=== PATIENT | female | born 1970 | race Caucasian/White ===

== ENCOUNTER 2024-06-01 08:44 | Inpatient (IN) ==
--- NOTE | 2024-06-01 09:15 | Emergency Department Note ---
History of Present Illness General Chief complaint: TIA Symptoms Stated complaint: LEFT ARM, LEG WEAKNESS, DIFFICULTY WALKING Time Seen by Provider: 06/01/24 09:04 Source: patient, RN notes reviewed and old records reviewed (Old medical records were attempted to be reviewed but there are no old records at this hospital.) Mode of arrival: ambulatory Limitations: no limitations History of Present Illness Maximum Pain Intensity: 5 This patient is a 53-year-old female who has had flulike symptoms for the last couple days but then last night around 6:00 noticed that she was weak in her left arm while folding laundry since then has been persistent she also has some numbness on the left side and facial droop. She fell today because she had a hard time walking no injury. No headache no fever or chills. No history of stroke she is on no blood thinners she has not been to a doctor in a long time. She tells me she has a severe allergy to IV contrast and cannot have it. Home Medications Medication Instructions Recorded Confirmed Type Apple Cider Vinegar Gummy 1 tab PO DAILY 06/01/24 06/01/24 History ibuprofen 200 mg tablet (Advil) 400 mg PO Q6H PRN Pain 06/01/24 06/01/24 History Allergies Allergy/AdvReac Type Severity Reaction Status Date / Time bee venom protein (honey bee) Allergy Intermediate Unknown Verified 06/01/24 11:31 iodine Allergy Mild Unknown Verified 06/01/24 11:31 Penicillins Allergy Mild Unknown Verified 06/01/24 11:31 CONTRASTMEDIA Allergy Mild Unknown Uncoded 06/01/24 11:31 Past Med/Surg History Problem List (Updated 06/01/24 @ 13:09 by Judson Ann PA-C) Elevated troponin Stroke-like symptoms Hypomagnesemia (Acute) Hypertension (Acute) Left sided numbness (Acute) Left-sided muscle weakness (Acute) Cerebrovascular accident (Acute) Social History Smoking Status: Never smoker Feels Safe at Home: Yes Immunizations: Past medical historydenies history of stroke or diabetes. She has not seen a doctor in many years Review of Systems A total of 10 systems reviewed and were otherwise negative Physical Exam Vital Signs Vital Signs - 24 hr 06/01/24 08:54 06/01/24 09:11 06/01/24 09:33 Temperature 36.3 C L 36.8 C Temperature Source Skin Oral Pulse Rate 89 74 Pulse Rate [Right Finger] 75 Pulse Rhythm [Right Finger] Regular Pulse Strength [Right Finger] Normal Respiratory Rate 20 20 Respiratory Effort / Characteristics Non-Labored Spontaneous Non-Labored Spontaneous Respiratory Depth Normal Normal Respiratory Pattern Regular Regular Blood Pressure 205/135 H Blood Pressure [Right Arm] 202/102 H Blood Pressure Mean 158 Blood Pressure Mean [Right Arm] 135 Blood Pressure Position [Right Arm] Lying Pulse Oximetry 93 98 Oxygen Delivery Method Room Air Room Air Sepsis Recent Fever Within 48 Hours No Sepsis New/Unexplained Change in Mental Status N/A Sepsis Action Taken by Nursing No Action Required 06/01/24 09:44 06/01/24 10:55 Temperature 36.7 C Temperature Source Oral Pulse Rate Pulse Rate [Right Finger] 76 Pulse Rhythm [Right Finger] Regular Pulse Strength [Right Finger] Normal Respiratory Rate 20 Respiratory Effort / Characteristics Non-Labored Spontaneous Respiratory Depth Normal Respiratory Pattern Regular Blood Pressure Blood Pressure [Right Arm] 192/100 H 186/98 H Blood Pressure Mean Blood Pressure Mean [Right Arm] 130 127 Blood Pressure Position [Right Arm] Semi-fowlers Semi-fowlers Pulse Oximetry 98 Oxygen Delivery Method Room Air Sepsis Recent Fever Within 48 Hours Sepsis New/Unexplained Change in Mental Status Sepsis Action Taken by Nursing General: Well developed well nourished middle-age female who appears in no acute distress, breathing comfortably on room air. Normal speech HEENT: Normal cephalic atraumatic. Pupils are equal round and reactive to light. Sclera anicteric extraocular movements are intact. Oropharynx is pink with moist mucous membranes. No swelling of the mouth lips or tongue. There is facial droop on the left compared to the right. Neck: Supple with a midline trachea. No meningeal signs or stiffness, no JVD or bruits. No Stridor. Chest: Clear to auscultation bilaterally. No wheezes or rhonchi. No increased work of breathing. Heart: Regular rate and rhythm without murmurs or gallops. Abdomen: Soft nontender, nondistended without rebound guarding or rigidity. Extremities: No cyanosis clubbing or edema. No calf tenderness or assymetry Spine/Back. Non tender to palpation. No CVA tenderness Skin: Good turgor without rashes. Neurologic exam: Cranial nerves two through 12 are intact, there is a small amount of facial droop on the left. She has decree sensation in the left arm and leg compared to the right. She seems a little weaker in the left arm with a little bit of drift compared to the right. Course Administered Medications Discontinued Medications Aspirin (Aspirin 81 Mg Chew) 324 mg PO NOW STA Stop: 06/01/24 09:57 Last Admin: 06/01/24 10:10 Dose: 324 mg Documented By: TAY Clopidogrel Bisulfate (Clopidogrel Bisulfate 300 Mg Tab) 300 mg PO NOW STA Stop: 06/01/24 09:57 Last Admin: 06/01/24 10:10 Dose: 300 mg Documented By: TAY Magnesium Sulfate/Dextrose (Magnesium Sulfate / D5w) 1 gm in 100 mls @ 100 mls/hr IV NOW STA Stop: 06/01/24 11:34 Last Admin: 06/01/24 10:53 Dose: 100 mls/hr Documented By: TAY Sodium Chloride (Nss) 500 mls @ 999 mls/hr IV .Q31M ONE Stop: 06/01/24 11:05 Last Admin: 06/01/24 10:54 Dose: 999 mls/hr Documented By: TAY Medical Decision Making Differential Diagnosis Intracranial process, CVA, infection, electrolyte or metabolic abnormality Medical Records Attestation: I reviewed the patient's medical records. Home Medications Current Medication List: was personally reviewed by me Laboratory Data Attestation: I reviewed the patient's lab results. 06/01/24 09:56 06/01/24 09:56 Lab Results 06/01/24 06/01/24 06/01/24 Range/Units 09:11 09:56 10:04 WBC 6.60 (4.8-10.8) K/ul RBC 5.43 H (4.20-5.40) M/uL Hgb 16.0 (12.0-16.0) g/dl Hct 48.4 H (37.0-47.0) % MCV 89.1 (80.0-100.0) fL MCH 29.5 (25.0-34.0) pg MCHC 33.1 (32.0-36.0) g/dL RDW Std Deviation 42.9 (36.4-46.3) fL RDW Coeff of Chaim 13.2 (11.5-14.5) % Plt Count 224 (130-400) K/uL MPV 11.7 (9.4-12.4) fL Immature Gran % (Auto) 0.3 % Neut % (Auto) 76.6 % Lymph % (Auto) 14.8 % Moffat % (Auto) 5.9 % Eos % (Auto) 1.5 % Baso % (Auto) 0.9 % Neut # (Auto) 5.05 (1.40-6.50) K/uL Lymph # (Auto) 0.98 L (1.20-3.40) K/uL Moffat # (Auto) 0.39 (0.11-0.59) K/uL Eos # (Auto) 0.10 (0.00-0.50) K/uL Baso # (Auto) 0.06 (0.00-0.20) K/uL Immature Gran # (Auto) 0.02 (0.01-0.20) K/uL PT 11.0 (9.0-12.0) Seconds INR 1.0 (0.9-1.1) APTT 23 (21-31) Seconds PTT Ratio 0.9 Sodium 140 (136-145) mmol/L Potassium 3.9 (3.5-5.1) mmol/L Chloride 103 (98-107) mmol/L Carbon Dioxide 30 (21-32) mmol/L Anion Gap 7 (3-11) BUN 13 (6-23) mg/dl Creatinine 0.64 (0.6-1.2) mg/dl Est Cr Clr Drug Dosing 120.7 ml/min Est GFR ( Amer) 117.3 ml/min Est GFR (Non-Af Amer) 101.2 ml/min BUN/Creatinine Ratio 20.3 H (10-20) Glucose 116 H (70-99(Fasting)) mg/dl POC Glucose 116 H (70-99) mg/dl Calcium 9.3 (8.6-10.3) mg/dl Magnesium 1.6 L (1.7-2.4) mg/dl Total Bilirubin 1.0 (0.2-1.0) mg/dl AST 35 (13-39) U/L ALT 37 (7-52) U/L Alkaline Phosphatase 72 (34-104) U/L Troponin I High Sens 20.1 H (0-14) pg/ml Total Protein 7.6 (6.0-8.3) gm/dl Albumin 4.3 (3.4-5.0) gm/dl Globulin 3.3 (2.5-4.0) gm/dl Albumin/Globulin Ratio 1.3 (0.9-2) Adenovirus (PCR) Not Detected (NotDetected) B. pertussis DNA (PCR) Not Detected (NotDetected) B.parapertussis DNA PCR Not Detected (NotDetected) C. pneumoniae DNA (PCR) Not Detected (NotDetected) Coronavirus OC43 (PCR) Not Detected (NotDetected) Coronavirus HKU1 (PCR) Not Detected (NotDetected) Coronavirus 229E (PCR) Not Detected (NotDetected) SARS-CoV-2 (PCR) Not Detected (NotDetected) Coronavirus NL63 (PCR) Not Detected (NotDetected) Human Metapneumovir PCR Not Detected (NotDetected) Influenza Type A (PCR) Not Detected (NotDetected) Influenza Type B (PCR) Not Detected (NotDetected) M. pneumoniae (PCR) Not Detected (NotDetected) Parainfluenza 1 (PCR) Not Detected (NotDetected) Parainfluenza 2 (PCR) Not Detected (NotDetected) Parainfluenza 3 (PCR) Not Detected (NotDetected) Parainfluenza 4 (PCR) Not Detected (NotDetected) RSV (PCR) Not Detected (NotDetected) Entero/Rhino (PCR) Not Detected (NotDetected) 06/01/24 Range/Units 11:44 WBC (4.8-10.8) K/ul RBC (4.20-5.40) M/uL Hgb (12.0-16.0) g/dl Hct (37.0-47.0) % MCV (80.0-100.0) fL MCH (25.0-34.0) pg MCHC (32.0-36.0) g/dL RDW Std Deviation (36.4-46.3) fL RDW Coeff of Chaim (11.5-14.5) % Plt Count (130-400) K/uL MPV (9.4-12.4) fL Immature Gran % (Auto) % Neut % (Auto) % Lymph % (Auto) % Moffat % (Auto) % Eos % (Auto) % Baso % (Auto) % Neut # (Auto) (1.40-6.50) K/uL Lymph # (Auto) (1.20-3.40) K/uL Moffat # (Auto) (0.11-0.59) K/uL Eos # (Auto) (0.00-0.50) K/uL Baso # (Auto) (0.00-0.20) K/uL Immature Gran # (Auto) (0.01-0.20) K/uL PT (9.0-12.0) Seconds INR (0.9-1.1) APTT (21-31) Seconds PTT Ratio Sodium (136-145) mmol/L Potassium (3.5-5.1) mmol/L Chloride (98-107) mmol/L Carbon Dioxide (21-32) mmol/L Anion Gap (3-11) BUN (6-23) mg/dl Creatinine (0.6-1.2) mg/dl Est Cr Clr Drug Dosing ml/min Est GFR ( Amer) ml/min Est GFR (Non-Af Amer) ml/min BUN/Creatinine Ratio (10-20) Glucose (70-99(Fasting)) mg/dl POC Glucose (70-99) mg/dl Calcium (8.6-10.3) mg/dl Magnesium (1.7-2.4) mg/dl Total Bilirubin (0.2-1.0) mg/dl AST (13-39) U/L ALT (7-52) U/L Alkaline Phosphatase (34-104) U/L Troponin I High Sens 19.0 H (0-14) pg/ml Total Protein (6.0-8.3) gm/dl Albumin (3.4-5.0) gm/dl Globulin (2.5-4.0) gm/dl Albumin/Globulin Ratio (0.9-2) Adenovirus (PCR) (NotDetected) B. pertussis DNA (PCR) (NotDetected) B.parapertussis DNA PCR (NotDetected) C. pneumoniae DNA (PCR) (NotDetected) Coronavirus OC43 (PCR) (NotDetected) Coronavirus HKU1 (PCR) (NotDetected) Coronavirus 229E (PCR) (NotDetected) SARS-CoV-2 (PCR) (NotDetected) Coronavirus NL63 (PCR) (NotDetected) Human Metapneumovir PCR (NotDetected) Influenza Type A (PCR) (NotDetected) Influenza Type B (PCR) (NotDetected) M. pneumoniae (PCR) (NotDetected) Parainfluenza 1 (PCR) (NotDetected) Parainfluenza 2 (PCR) (NotDetected) Parainfluenza 3 (PCR) (NotDetected) Parainfluenza 4 (PCR) (NotDetected) RSV (PCR) (NotDetected) Entero/Rhino (PCR) (NotDetected) Imaging Data Attestation: I personally reviewed and interpreted this imaging study as follows: My Impression: Head CTno acute hemorrhage or mass effect seen. Chest x-rayno acute infiltrate, failure, pneumothorax seen Radiologist's Impression: Head CT 06/01/24 09:10 CT head/brain wo con CLINICAL HISTORY: neuro deficit, acute stroke suspected Technique: Contiguous axial CT images of the head were acquired from the base of the skull to the vertex without intravenous contrast administration. Images were viewed in brain, subdural and bone windows. Automated dose lowering techniques and/or adjustment according to patient size were utilized for this exam. Comparison: None available at the time of this dictation. Findings: The ventricles, basal cisterns, and cerebral sulci are normal. There is no acute intracranial hemorrhage or evidence of acute territorial infarction. Neither mass effect, shift of the midline structures, nor abnormal extra-axial fluid collections are shown. Imaged portions of the paranasal sinuses and mastoid air cells are clear. The orbits appear normal. Left maxillary sinus opacification is seen. Incidental note is made of periapical lucency about the left maxillary second premolar. Impression: 1. No acute intracranial hemorrhage, no evidence of acute territorial infarction or other acute intracranial disease process. 2. Incidental note is made of periapical abscess in the left maxillary premolar. ACT 112: Negative or not required by law. Electronically signed by: Peewee Zuniga M.D. 06/01/2024 9:52 AM Chest X-Ray 06/01/24 10:35 XR chest 1V portable CLINICAL HISTORY: cough TECHNIQUE: Single frontal radiograph of the chest was obtained. Comparison: None available at the time of this dictation. FINDINGS: Exam is limited by underpenetration. The cardiomediastinal silhouette is normal. The lungs are clear. No evidence of pleural effusion or pneumothorax. IMPRESSION: No acute chest disease. ACT 112: Negative or not required by law. Electronically signed by: Peewee Zuniga M.D. 06/01/2024 10:52 AM ECG Data Attestation: I personally reviewed and interpreted this ECG as follows: Indication: + weakness Rate (beats per minute): 73 Rhythm: + normal sinus ECG Intervals/blocks: + Normal QRS, + Normal QT and + Normal ID ECG [place]: + Normal ECG ST segments: + Normal ST segments ECG Findings: + LVH; no PACs or no PVCs Comparison ECG Date: no prior available Prescription Drug Monitoring [place] Drug Monitoring [place] reviewed and no issues identified MDM Narrative This patient comes in as described above. She was placed on a cardiac technician in room C10 . saw her and called a stroke alert. She is certainly outside the window for lytics as this occurred last night at 6 PM and were about 15+ hours out but I want to expedite her care. She also tells me she is significant allergic to IV contrast and therefore just ordered a dry scan initially. EKG and multiple blood testing was obtained. she was reassessed frequently. CAT scan of her head was unremarkable. I did call a stroke alert given her symptoms and she was eval by Dr. Milan, telestroke neurology, she agrees that the patient outside of the thrombolytic window and does not feel this is likely large vessel disease but will need to be admitted for further treatment evaluation. she recommended we load her with aspirin and Plavix , which I did as directed . she was given IV fluids her magnesium was low at 1.6 like to give her IV magnesium. She will need her large vessels evaluated as well but that can be done during MRI. Her second troponin came back lower than the first I did nothing is acute cardiac. Her bio fire was negative. Chest x-ray shows no congestive heart failure, pneumonia, pneumothorax. I do think she needs to be admitted/observed for further stroke workup. Her blood pressure was significant elevated initially however when I had to manually check it , it is much lower in the 190/100 range. I did discuss this with the stroke neurologist and she feels that permissive hypertension is warranted at this point. We do not know what the patient's baseline is. Continuous cardiac monitoring call orders placed in EMR for continuous cardiac monitoring: Upon my evaluation, the patient was noted to be in normal sinus rhythm with a rate of 75 Impression & Plan Cerebrovascular accident, Left-sided muscle weakness, Left sided numbness, Hypertension, Hypomagnesemia Discharge Plan Visit Data Chief Complaint: TIA Symptoms Stated Complaint: LEFT ARM, LEG WEAKNESS, DIFFICULTY WALKING ED Provider: [place] Discharge Problem: Cerebrovascular accident, Left-sided muscle weakness, Left sided numbness, Hypertension, Hypomagnesemia Patient Disposition: Admitted As Inpatient Discharge Instructions Interventions: ED Discharge Assessment Last Done: 06/01/24 12:21 Discharge Problem: Cerebrovascular accident Qualifiers: CVA mechanism: unspecified Qualified Code(s): I63.9 - Cerebral infarction, unspecified Hypertension Qualifiers: Hypertension type: unspecified Qualified Code(s): I10 - Essential (primary) hypertension
--- NOTE | 2024-06-01 09:54 | CT Scan Report ---
CT head/brain wo con CLINICAL HISTORY: neuro deficit, acute stroke suspected Technique: Contiguous axial CT images of the head were acquired from the base of the skull to the riki иван without intravenous contrast administration. Images were viewed in brain, subdural and bone [facility]. Automated dose lowering techniques and/or adjustment according to patient size were utilized for this exam. Comparison: None available at the time of this dictation. Findings: The ventricles, basal cisterns, and cerebral sulci are normal. There is no acute intracranial hemorrh age or evidence of acute territorial infarction. Neither mass effect, shift of the midline structures , nor abnormal extra-axial fluid collections are shown. Imaged portions of the paranasal sinuses and mastoid air cells are clear. The orbits appear normal. Left maxillary sinus opacification is seen. Incidental note is made of periapical lucency about the l eft maxillary second premolar. Impression: 1. No acute intracranial hemorrhage, no evidence of acute territorial infarction or other acute intr acranial disease process. 2. Incidental note is made of periapical abscess in the left maxillary premolar. ACT 112: Negative or not required by law. Electronically signed by: Peewee Zuniga M.D. 06/01/2024 9:52 AM
[2024-06-01] MEDS: ASPIRIN 81 MG CHEW PO STA (10:10)
[2024-06-01] MEDS: CLOPIDOGREL BISULFATE 300 MG TAB PO STA (10:10)
[2024-06-01 10:19] LABS: Partial Thromboplastin Ratio 0.9; Partial Thromboplastin Time 23 Seconds (21-31)
[2024-06-01 10:28] LABS: Basophils # (auto) 0.06 K/uL (0.00-0.20); Basophils % (auto) 0.9 %; Eosinophils % (auto) 1.5 %; Hematocrit (blood only) 48.4 % (37.0-47.0); Immature Granulocytes # (auto) 0.02 K/uL (0.01-0.20); Immature Granulocytes % (auto) 0.3 %; Lymphocytes # (auto) 0.98 K/uL (1.20-3.40); Lymphocytes % (auto) 14.8 %; Mean Corpuscular Hemoglobin 29.5 pg (25.0-34.0); Mean Corpuscular Hgb Conc 33.1 g/dL (32.0-36.0); Mean Corpuscular Volume 89.1 fL (80.0-100.0); Mean Platelet Volume 11.7 fL (9.4-12.4); Monocytes # (auto) 0.39 K/uL (0.11-0.59); Monocytes % (auto) 5.9 %; Neutrophils # (auto) 5.05 K/uL (1.40-6.50); Neutrophils % (auto) 76.6 %; Platelet Count 224 K/uL (130-400); RDW Coefficient of Variation 13.2 % (11.5-14.5); RDW Standard Deviation 42.9 fL (36.4-46.3); Red Blood Count 5.43 M/uL (4.20-5.40)
[2024-06-01 10:29] LABS: Albumin Globulin Ratio 1.3 (0.9-2); Albumin Level 4.3 gm/dl (3.4-5.0); BUN Creatinine Ratio 20.3 (10-20); Calcium 9.3 mg/dl (8.6-10.3); Creatinine Clr Calc Pharmacy 120.7 ml/min; Est GFR (African American) 117.3 ml/min; Est GFR (Non-African American) 101.2 ml/min; Globulin 3.3 gm/dl (2.5-4.0); Magnesium 1.6 mg/dl (1.7-2.4); Potassium 3.9 mmol/L (3.5-5.1); Total Protein 7.6 gm/dl (6.0-8.3)
[2024-06-01 10:35] LABS: Troponin I High Sensitivity 20.1 pg/ml (0-14)
[2024-06-01] MEDS: MAGNESIUM SULFATE / D5W 1 GM/100 ML BAG IV STA (10:53)
--- NOTE | 2024-06-01 10:53 | XRay Report ---
XR chest 1V portable CLINICAL HISTORY: cough TECHNIQUE: Single frontal radiograph of the chest was obtained. Comparison: None available at the time of this dictation. FINDINGS: Exam is limited by underpenetration. The cardiomediastinal silhouette is normal. The lungs are clear. No evidence of pleural effusion or pneumothorax. IMPRESSION: No acute chest disease. ACT 112: Negative or not required by law. Electronically signed by: Peewee Zuniga M.D. 06/01/2024 10:52 AM
[2024-06-01] MEDS: SODIUM CHLORIDE 0.9% 500 ML IV ONE (10:54)
[2024-06-01 11:14] LABS: Adenovirus PCR Not Detected (NotDetected); Bordetella parapertussis PCR Not Detected (NotDetected); Bordetella pertussis PCR Not Detected (NotDetected); Chlamydia pneumoniae PCR Not Detected (NotDetected); Coronavirus 229E PCR Not Detected (NotDetected); Coronavirus CoV-2 (COVID19)PCR Not Detected (NotDetected); Coronavirus HKU1 PCR Not Detected (NotDetected); Coronavirus NL63 PCR Not Detected (NotDetected); Coronavirus OC43PCR Not Detected (NotDetected); Human Metapneumovirus PCR Not Detected (NotDetected); Influenza A PCR Not Detected (NotDetected); Influenza B PCR Not Detected (NotDetected); Mycoplasma pneumoniae PCR Not Detected (NotDetected); Parainfluenza Virus 1 PCR Not Detected (NotDetected); Parainfluenza Virus 2 PCR Not Detected (NotDetected); Parainfluenza Virus 3 PCR Not Detected (NotDetected); Parainfluenza Virus 4 PCR Not Detected (NotDetected); Respiratory Syncytial VirusPCR Not Detected (NotDetected); Rhinovirus/Enterovirus PCR Not Detected (NotDetected)
--- NOTE | 2024-06-01 11:15 | History & Physical Report ---
Date of Service June 01, 2024 Assessment & Plan (1) Stroke-like symptoms: Plan: Leg weakness that developed around 6 PM on 05/31; slurred speech and left-sided facial droop upon waking at 6:30 AM on 06/01 Last known well at 6 PM 05/31 Per telestroke, patient would be outside the window for thrombolytic therapy Clinically, patient endorses slurred speech, facial droop, and unilateral deficits Head CT revealed no acute hemorrhage or infarct, but did note an incidental krishna apical abscess Brain MRI/MRA and carotid Dopplers ordered, pending Echocardiogram with bubble study ordered, pending Keep n.p.o. until patient passes dysphagia screen Neurochecks q4h No BP, IV, or labs in the LUE ASA plus Plavix load in the ED Atorvastatin 40 mg p.o. once patient passes dysphagia screen DAPT with aspirin and Plavix daily Speech therapy evaluations appreciated given facial droop PT/OT evaluations appreciated Neurology consult pending MRI results A.m. CBC, BMP, Mag, A1c, fasting lipid panel (2) Hypertension: Plan: Permissive HTN in the setting of strokelike symptoms Per telestroke, will slightly reduce measures Labetalol 5 mg IV q6h as needed for SBP>200 or DBP>110 If refractory, consider nicardipine (3) Lyme disease: Plan: Lyme (+) on arrival Likely contributing to symptoms Doxycycline 100mg IV q12h (4) Periapical abscess: Plan: Periapical abscess in the left maxillary premolar noted on head CT Patient endorses ongoing tooth pain x several years No leukocytosis; afebrile PCN allergy, but patient is unsure if it is a true allergy and is unsure what happens when she takes PCN Reached out to oral surgery (Dr. Elam) Likely chronic, but will need surgical intervention Recommended follow-up outpatient upon discharge (5) Hypomagnesemia: Plan: Mild; magnesium 1.6 on arrival Magnesium sulfate 1 g IV x 1 Recheck a.m. mag (6) Elevated troponin: Plan: 20-->19; no CP; continue telemetry monitoring Plan Disposition: Admit to PCU telemetry Full code N.p.o., then advance diet as tolerated VTE PPx: SCDs; start on ASA + Plavix History of Present Illness Chief Complaint: Stroke-like symptoms, facial droop Primary Care Provider: NO PCP Keke is a 53-year-old female without significant PMH. She presented for strokelike symptoms on 06/01. Her symptoms for started yesterday around 6 PM when she was ironing; she noticed that her left leg felt weak in her hand dexterity in the left hand was off. She woke up feeling a little sick, and was concerned that she might have COVID. She then woke up the following morning at 6:30 AM and noticed left-sided facial droop and slurred speech. No PMH of stroke, AL, DVT/PE, DM, CHF, HLD, or HTN to her knowledge. She has not been in to see a doctor in 18 years. She does not take medication on daily basis. No sick contacts, but she was recently in [place] on 05/18, and reports she may have been around sick contacts; she also reports that she had 1 day of chest pain [place] the [place] in [place] and her feet were swollen. She denies any rashes or tick bites. Last BM was this morning. She denies smoking and tobacco use. She does endorse recent alcohol use 2 days ago, and reports that she drinks 34 drinks per week; no history of alcohol withdrawal or seizures. She does not take medications on a daily basis. Patient is hypertensive at 182/86 at time of admission; vitals otherwise stable. ED course: Aspirin 324 mg p.o. Plavix 300 mg p.o. Magnesium sulfate 1 g IV NSS 500 mL IV ROS: Patient endorses feeling off balance, left facial droop, slurred speech, left leg weakness, right tooth pain (has been ongoing for years, per patient), and numbness/tingling in the left foot. Patient denies fever, chills, night-sweats, dizziness/lightheadedness with movements, changes in vision, changes in hearing/taste/smell, rashes, tick bites, difficulty swallowing, chest pain, SOB, cough, chest pressure, chest palpitations, abdominal pain, N/V/D, changes in urinary/bowel habits. Allergies Allergy/AdvReac Type Severity Reaction Status Date / Time bee venom protein (honey bee) Allergy Intermediate Unknown Verified 06/01/24 11:31 iodine Allergy Mild Unknown Verified 06/01/24 11:31 Penicillins Allergy Mild Unknown Verified 06/01/24 11:31 CONTRASTMEDIA Allergy Mild Unknown Uncoded 06/01/24 11:31 Home Medications Medication Instructions Recorded Confirmed Type Apple Cider Vinegar Gummy 1 tab PO DAILY 06/01/24 06/01/24 History ibuprofen 200 mg tablet (Advil) 400 mg PO Q6H PRN Pain 06/01/24 06/01/24 History Past Med/Surg History Problem List (Updated 06/01/24 @ 18:17 by Judson Ann PA-C) Lyme disease Periapical abscess Elevated troponin Stroke-like symptoms Hypomagnesemia (Acute) Hypertension (Acute) Left sided numbness (Acute) Left-sided muscle weakness (Acute) Cerebrovascular accident (Acute) Social History Smoking Status: Never smoker Hx Alcohol Use: Yes Alcohol type: hard liquor Hx Substance Use: No Preferred Language: Malay Communication Ability: Effective Field Consultant Required: No Beliefs That Will Affect Care: None Current Living Situation: Family Feels Safe at Home: Yes Safety Concerns: Feels Safe At This Time Assistive Devices: Glasses Review of Systems Review of Systems: See HPI above Physical Exam Physical Exam: General: Pleasant affect; anxious; non-toxic appearing; well-nourished; cooperative; SpO2 98% on RA HEENT: normocephalic, atraumatic; no scleral icterus; PERRLA w/ EOMs intact; poor dentition; vision and hearing grossly intact; patient demonstrates ability to raise eyebrows without unilateral deficits; she can protrude and wiggle her tongue bilaterally; she exhibits a left-sided facial droop when smiling and frowning Neck: supple; no lymphadenopathy; trachea midline; patient demonstrates ability to shrug shoulders against resistance and rotate neck in both directions without pain or dizziness Skin: warm, dry without signs of tenting; no cyanosis; no rashes, bruising, lesions, or erythema noted CV: chest wall NTP; RRR; S1/S2 normal; no murmurs/rubs/gallops; pulses intact and symmetric at radial, DP, and PT Lungs: no acute respiratory distress; symmetrical chest wall expansion; clear breath sounds across all lung stewart w/o adventitious sounds; no wheezing ABD: Soft, NTP; BS present; no rebound/guarding; no distention MSK: no tics or fasciculations; no edema noted in the LEs b/l, nonerythematous; 3/5 ranch cook strength in the left hand, 5/5 ranch cook strength in the right hand; diminished strength in the LUE; strength is intact and symmetric in the lower extremities bilaterally; patient demonstrates ability to wiggle toes, plantarflex/dorsiflex against resistance, and lift the leg off the bed without deficits Neuro: A&Ox3; normal mood and affect; fluent speech; no focal deficits; sensation intact in the face UEs/LEs bilaterally; she notes diminished sensation at the left cheek when compared to the right Results & Data Results & Data Vital Signs (Past 12 Hours) Vital Signs Temp Pulse Pulse Resp BP BP Pulse Ox 06/01/24 10:55 36.7 C 76 20 186/98 H 98 06/01/24 09:44 192/100 H 06/01/24 09:33 36.8 C 75 20 202/102 H 98 06/01/24 09:11 74 06/01/24 08:54 36.3 C L 89 20 205/135 H 93 O2 Del Method 06/01/24 10:55 Room Air 06/01/24 09:44 06/01/24 09:33 Room Air 06/01/24 09:11 06/01/24 08:54 Room Air Laboratory Results Abnormal lab results 06/01/24 06/01/24 06/01/24 Range/Units 09:11 09:56 11:44 RBC 5.43 H (4.20-5.40) M/uL Hct 48.4 H (37.0-47.0) % Lymph # (Auto) 0.98 L (1.20-3.40) K/uL BUN/Creatinine Ratio 20.3 H (10-20) Glucose 116 H (70-99(Fasting)) mg/dl POC Glucose 116 H (70-99) mg/dl Magnesium 1.6 L (1.7-2.4) mg/dl Troponin I High Sens 20.1 H 19.0 H (0-14) pg/ml Diagnostic Findings Head CT 06/01/24 09:10 CT head/brain wo con CLINICAL HISTORY: neuro deficit, acute stroke suspected Technique: Contiguous axial CT images of the head were acquired from the base of the skull to the vertex without intravenous contrast administration. Images were viewed in brain, subdural and bone windows. Automated dose lowering techniques and/or adjustment according to patient size were utilized for this exam. Comparison: None available at the time of this dictation. Findings: The ventricles, basal cisterns, and cerebral sulci are normal. There is no acute intracranial hemorrhage or evidence of acute territorial infarction. Neither mass effect, shift of the midline structures, nor abnormal extra-axial fluid collections are shown. Imaged portions of the paranasal sinuses and mastoid air cells are clear. The orbits appear normal. Left maxillary sinus opacification is seen. Incidental note is made of periapical lucency about the left maxillary second premolar. Impression: 1. No acute intracranial hemorrhage, no evidence of acute territorial infarction or other acute intracranial disease process. 2. Incidental note is made of periapical abscess in the left maxillary premolar. ACT 112: Negative or not required by law. Electronically signed by: Peewee Zuniga M.D. 06/01/2024 9:52 AM Chest X-Ray 06/01/24 10:35 XR chest 1V portable CLINICAL HISTORY: cough TECHNIQUE: Single frontal radiograph of the chest was obtained. Comparison: None available at the time of this dictation. FINDINGS: Exam is limited by underpenetration. The cardiomediastinal silhouette is normal. The lungs are clear. No evidence of pleural effusion or pneumothorax. IMPRESSION: No acute chest disease. ACT 112: Negative or not required by law. Electronically signed by: Peewee Zuniga M.D. 06/01/2024 10:52 AM ECG Additional Comments: ECG revealed NSR at 73 bpm; QTc 451 No prior EKGs for comparison Code Status & VTE Plan Code Status Full code VTE Prophylaxis Plan VTE Prophylaxis will be ordered: Yes Supervising Physician Co-Signing Physician Notes Patient seen and examined, chart reviewed, case discussed with Judson Ann PA-C and I agree with the assessment and plan as above except as otherwise noted Labs and images reviewed 53-year-old female presents for stroke evaluation. Last known well 6 PM evening prior to admission. Symptoms initially started with left leg weakness, awoke this morning with left facial droop, left arm numbness/tingling and weakness. Case was reviewed by telestroke. She is outside the window for thrombolytics. CThead does not show acute findings. Angiography deferred due to history of severe contrast allergy, recommended for MR angiography instead. MRIbrain, MRAbrain, carotid Dopplers have been ordered. Loaded with aspirin and Plavix, and DAPT continued. Clinical presentation highly suspicious for MCA CVA. No history of A-fib however patient does not follow-up regularly for any medical care. Echo with bubble study is pending. No chest pain, chest pressure, fever, chills, sweats. CTAB, RRR at bedside. No history of tobacco use. Agree with assessment and management above. Will allow for 24 hours of permissive hypertension, per telestroke will target systolic pressure of less than 200 rather than 220. Labetalol is on-call. Continue DAPT. Atorvastatin 40 mg has been ordered with fasting lipid panel pending for the morning. Admitted to PCU for post stroke protocol. Speech eval pending, does not pass bedside swallow due to facial droop. On reassessment still has weakness of L arm and leg, feels some strength returning to her L arm but still with 3-4-/5 shoulder flexion/elbow flexion/extension and ranch cook compared to 5/5 on R. Patient also incidentally Lyme IgG and IgM positive consistent with acute Lyme exposure, started on doxycycline with Western blot pending. Lastly patient does have periapical dental disease. OMFS following and likely with outpatient follow-up, doxycycline is continued and can defer clindamycin adjunct at this time. No acute surgical intervention indicated. PG Care Time/CCT Total # of Minutes Spent Total Time Spent with Patient: Total time spent is greater than 50% in coordination of care (as documented) at patient's floor/unit and/or counseling patient: [place] [address] INT INP/OBS CARE 3/75MIN Patient Type New Medical Decision Making High Complexity Diagnoses Stroke-like symptoms R29.90 Hypertension I10 Lyme disease A69.20 Periapical abscess K04.7 Hypomagnesemia E83.42 Elevated troponin R79.89
[2024-06-01] MEDS ORDERED: PHARMACIST DISCHARGE MED REC CONSULT PRN (11:16)
--- NOTE | 2024-06-01 12:30 | Electrocardiogram Report ---
Test Reason : Blood Pressure : / mmHG Vent. Rate : 073 BPM Atrial Rate : 073 BPM P-R Int : 158 ms QRS Dur : 084 ms QT Int : 410 ms P-R-T Axes : 054 -12 063 degrees QTc Int : 451 ms Normal sinus rhythm Moderate voltage criteria for LVH, may be normal variant ( R in aVL ) Poor R wave progression, consider anterior PA vs. lead placement vs. LVH Abnormal ECG No previous ECGs available Confirmed by Lb Nicole ([id number]) on 06/01/2024 12:30:16 PM Referred By: REFERRED SELF Confirmed By:Lb Nicole
[2024-06-01] MEDS ORDERED: ONDANSETRON INJ 2 MG/ML 2 ML VIAL IV PRN (13:00)
[2024-06-01] MEDS ORDERED: METOPROLOL TARTRATE 1 MG/ML VIAL IV PRN (13:00)
[2024-06-01] MEDS: LABETALOL HCL IV 5 MG/ML 20ML IV PRN (13:43)
[2024-06-01] MEDS: ATORVASTATIN 40 MG TAB PO STA (14:16)
[2024-06-01] MEDS: LABETALOL HCL IV 5 MG/ML 20ML IV STA ×2 (14:28→20:26)
--- NOTE | 2024-06-01 15:26 | Magnetic Resonance Report ---
MR angio head wo con CLINICAL HISTORY: Stroke like symptoms TECHNIQUE: 3D time of flight MRA of the head was performed without intravenous contrast. 3-D reconstr uctions were obtained in multiple planes. Comparison: None available at the time of this dictation. FINDINGS: Flow signal is shown in the intracranial segments of the internal carotid arteries, the anterior, mid dle and posterior cerebral arteries, the anterior and posterior communicating arteries, cerebellar ar teries, the intracranial segments of the vertebral arteries, and the basilar artery. No aneurysm, ar teriovenous malformation, dissection, nor hemodynamically significant flow stenosis is shown. Assessment of stenosis of the internal carotid arteries is based on NASCET criteria. IMPRESSION: No evidence of acute intracranial abnormality. In particular, no occlusion, hemorrhage, or aneurysmal disease is seen. ACT 112: Negative or not required by law. Electronically signed by: Peewee Zuniga M.D. 06/01/2024 3:24 PM
--- NOTE | 2024-06-01 15:31 | Magnetic Resonance Report ---
MR brain wo con CLINICAL HISTORY: Stroke like symptoms TECHNIQUE: Multiplanar and multisequence MR images of the brain were obtained without intravenous con trast. Comparison: Comparison is made to CT head 06/01/2024 FINDINGS: There is a small focus of restricted diffusion in the right periventricular white matter near the pos terior horn of the lateral ventricle. The white matter is unremarkable. The ventricular system is nor mal in appearance. No mass is seen. There is no mass effect or midline shift. There is a tiny focus o f restricted diffusion in the left internal capsule. No extra axial fluid collections are seen. The c orpus callosum, pituitary gland, and cerebellar tonsils appear grossly unremarkable. Flow voids of the major intracranial arterial vessels are identified. The imaged portions of the para nasal sinuses, mastoid air cells, and orbits are unremarkable. IMPRESSION: Restricted diffusion in the right periventricular white matter compatible with tiny acute infarct. No evidence of hemorrhagic transformation. ACT 112: Negative or not required by law. Electronically signed by: Peewee Zuniga M.D. 06/01/2024 3:28 PM
--- NOTE | 2024-06-01 16:06 | Ultrasound Report ---
ULTRASOUND OF THE CAROTID ARTERIES CLINICAL HISTORY: Stroke like symptoms TECHNIQUE: Real-time, grayscale, and color Doppler sonography of the bilateral carotid arteries is pe rformed. Images are reviewed in the transverse and longitudinal planes. COMPARISON: None available at the time of this dictation. FINDINGS: The carotid arteries are patent bilaterally and demonstrate antegrade flow. There is no atherosclerot ic plaque on the right and no atherosclerotic plaque on the left. Normal doppler arterial waveforms a re seen throughout. Velocity measurements are listed below. Common carotid peak systolic velocity (cm/sec): RIGHT: 83 LEFT: 38 ICA peak systolic velocity (cm/sec): RIGHT: 46 LEFT: 53 ICA/CC peak systolic ratio: RIGHT: 0.6 LEFT: 1.7 Antegrade flow was shown in the vertebral arteries. The external carotid arteries are patent. The rig ht carotid artery is noted to be tortuous. IMPRESSION: 1. There is no sonographic evidence of hemodynamically significant stenosis in the right or left car otid arterial system. 2. Antegrade flow is shown in the vertebral arteries. Society of Radiologists in Ultrasound consensus guidelines: Normal: ICA PSV is <125 cm/sec and no plaque or intimal thickening is visible sonographically additional criteria include ICA/CCA PSV ratio <2.0 and ICA EDV <40 cm/sec <50% ICA stenosis: ICA PSV is <125 cm/sec and plaque or intimal thickening is visible sonographically additional criteria include ICA/CCA PSV ratio <2.0 and ICA EDV <40 cm/sec 50-69% ICA stenosis: ICA PSV is 125-230 cm/sec and plaque is visible sonographically additional criteria include ICA/CCA PSV ratio of 2.0-4.0 and ICA EDV of 40-100 cm/sec ?70% ICA stenosis but less than near occlusion: ICA PSV is >230 cm/sec and visible plaque and luminal narrowing are seen at baez-scale and color Dopp ler ultrasound (the higher the Doppler parameters lie above the threshold of 230 cm/sec, the greater the likelihood of severe disease) additional criteria include ICA/CCA PSV ratio >4 and ICA EDV >100 cm/sec ACT 112: Negative or not required by law. Electronically signed by: Peewee Zuniga M.D. 06/01/2024 4:04 PM
[2024-06-01] MEDS: amLODIPine BESYLATE 5 MG TAB PO ONE (17:02)
[2024-06-01 17:24] LABS: Lyme Screen Rflx Confirmation Positive (Negative)
[2024-06-01 17:58] LABS: Lyme Ab IgG 2nd Tier Confirm Positive (Negative)
[2024-06-01 17:59] LABS: Lyme Ab IgM 2nd Tier Confirm Positive (Negative)
[2024-06-01] MEDS: DOXYCYCLINE HYCLATE 100 MG in DEXTROSE 5% MINI-B 100 ML IV STA (19:10)
[2024-06-01] MEDS: hydrALAZINE HCL 20 MG/ML VIAL IV STA (21:13)
[2024-06-02] MEDS: ACETAMINOPHEN 1,000 MG/100 ML VIAL IV PRN (03:36)
[2024-06-02] MEDS: DOXYCYCLINE HYCLATE 100 MG in DEXTROSE 5% MINI-B 100 ML IV SCH (06:38)
[2024-06-02 07:32] LABS: Basophils # (auto) 0.04 K/uL (0.00-0.20); Basophils % (auto) 0.6 %; Eosinophils # (auto) 0.16 K/uL (0.00-0.50); Eosinophils % (auto) 2.6 %; Hematocrit (blood only) 45.7 % (37.0-47.0); Hemoglobin 15.1 g/dl (12.0-16.0); Immature Granulocytes # (auto) 0.02 K/uL (0.01-0.20); Immature Granulocytes % (auto) 0.3 %; Lymphocytes # (auto) 1.27 K/uL (1.20-3.40); Lymphocytes % (auto) 20.3 %; Mean Corpuscular Hemoglobin 29.5 pg (25.0-34.0); Mean Corpuscular Volume 89.4 fL (80.0-100.0); Mean Platelet Volume 11.7 fL (9.4-12.4); Monocytes # (auto) 0.44 K/uL (0.11-0.59); Neutrophils # (auto) 4.34 K/uL (1.40-6.50); Neutrophils % (auto) 69.2 %; Platelet Count 233 K/uL (130-400); RDW Coefficient of Variation 13.5 % (11.5-14.5); RDW Standard Deviation 43.8 fL (36.4-46.3); Red Blood Count 5.11 M/uL (4.20-5.40); White Blood Count 6.27 K/ul (4.8-10.8)
[2024-06-02 07:45] LABS: BUN Creatinine Ratio 14.7 (10-20); Chol HDL Ratio 3.4 (0-5); Creatinine Clr Calc Pharmacy 103.6 ml/min; Est GFR (African American) 104.7 ml/min; Est GFR (Non-African American) 90.4 ml/min; Magnesium 1.9 mg/dl (1.7-2.4); Potassium 3.8 mmol/L (3.5-5.1)
--- NOTE | 2024-06-02 08:14 | Hospitalist Progress Note ---
Date of Service June 02, 2024 Assessment & Plan (1) Stroke-like symptoms: (2) Hypertension: (3) Lyme disease: (4) Periapical abscess: (5) Hypomagnesemia: (6) Elevated troponin: Plan #Stroke-like symptoms - Leg weakness that developed around 6 PM on 05/31; slurred speech and left-sided facial droop upon waking at 6:30 AM on 06/01 - Last known well at 6 PM 05/31 - Per telestroke, patient would be outside the window for thrombolytic therapy - Clinically, patient endorses slurred speech, facial droop, and unilateral deficits - Head CT revealed no acute hemorrhage or infarct, but did note an incidental periapical abscess - Brain MRI: restricted difusion in the right periventricular white matter compatible with tiny acute infarct - Head MRA: no evidence of acute intracranial abnormality, in particular no occlusion, hemorrhage, or aneurysmal disease - Carotid Dopplers; no sonographic evidence of hemodynamically significant stenosis in the right or left carotid arterial system, antegrade flow is shown in the vertebral arteries - Echocardiogram with bubble study completed, results pending - 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 daily initiated - PT/OT evaluations recs rehab - spoke with neurology, DAPT recs appreciated, also cleared to initate PO BP meds #Hypertension: - permissive HTN in the setting of strokelike symptoms - Per telestroke, will slightly reduce measures - Labetalol 5 mg IV q6h as needed for SBP>200 or DBP>110 - started on Metoprolol BID #Lyme disease: - Lyme (+) on arrival - Likely contributing to symptoms - will treat with Doxy 100mg bid Day , last dose on June 11 AM #Periapical abscess: - Periapical abscess in the left maxillary premolar noted on head CT - Patient endorses ongoing tooth pain x several years - No leukocytosis; afebrile - PCN allergy, but patient is unsure if it is a true allergy and is unsure what happens when she takes PCN - Reached out to oral surgery (Dr. Elam) - Likely chronic, but will need surgical intervention - Recommended follow-up outpatient upon discharge #Hypomagnesemia: - replete and montior #Elevated troponin: - 20-->19; no CP; continue telemetry monitoring Disposition: pending clinical improvement, currently in PCU telemetry Full code VTE PPx: SCDs; start on ASA + Plavix 06/02: pt's daughter and son at bedside Admission and Anticipated Discharge Date Admission Date: June 01, 2024 Subjective No acute events overnight Currently no new complaints Review of Systems Review of Systems: comprehensive ROS reviewed Physical Exam Physical Exam: Gen: no acute distress, lying in bed comfortable HEENT: NC/AT CVS: s1s2 nl, no murmurs/rubs/gallops Lungs: CTAB Abd: protuberant, nl bowel sounds, soft, nontender : no smith Extremities: no edema Neuro: decreased sensation left face / left forearm & hand / left toes, left facial drooping, left arm weakness Psych: pleasant affect Results & Data Results & Data Vital Signs (Past 12 Hours) Vital Signs Temp Pulse Pulse Resp BP BP Pulse Ox 06/02/24 07:49 36.3 C L 83 18 214/116 H 94 06/02/24 07:20 64 06/02/24 02:37 36.5 C 83 18 190/82 H 97 06/01/24 22:41 36.3 C L 73 18 195/75 H 95 06/01/24 21:46 86 187/92 H 06/01/24 21:35 75 06/01/24 20:24 60 215/108 H 06/01/24 20:24 60 215/108 H O2 Del Method 06/02/24 07:49 Room Air 06/02/24 07:20 06/02/24 02:37 Room Air 06/01/24 22:41 Room Air 06/01/24 21:46 06/01/24 21:35 06/01/24 20:24 06/01/24 20:24 Laboratory Results Abnormal lab results 06/01/24 06/01/24 06/02/24 Range/Units 09:56 11:44 07:00 RBC 5.43 H (4.20-5.40) M/uL Hct 48.4 H (37.0-47.0) % Lymph # (Auto) 0.98 L (1.20-3.40) K/uL BUN/Creatinine Ratio 20.3 H (10-20) Glucose 116 H 117 H (70-99(Fasting)) mg/dl Magnesium 1.6 L (1.7-2.4) mg/dl Troponin I High Sens 20.1 H 19.0 H (0-14) pg/ml Cholesterol 214 H (0-200) mg/dl Lyme Disease Screen Positive H (Negative) Lyme Tier 2 IgG Confirm Positive H (Negative) Lyme Tier 2 IgM Confirm Positive H (Negative) Diagnostic Findings Chest X-Ray 06/01/24 10:35 XR chest 1V portable CLINICAL HISTORY: cough TECHNIQUE: Single frontal radiograph of the chest was obtained. Comparison: None available at the time of this dictation. FINDINGS: Exam is limited by underpenetration. The cardiomediastinal silhouette is normal. The lungs are clear. No evidence of pleural effusion or pneumothorax. IMPRESSION: No acute chest disease. ACT 112: Negative or not required by law. Electronically signed by: Peewee Zuniga M.D. 06/01/2024 10:52 AM Brain MRI 06/01/24 11:16 MR brain wo con CLINICAL HISTORY: Stroke like symptoms TECHNIQUE: Multiplanar and multisequence MR images of the brain were obtained without intravenous contrast. Comparison: Comparison is made to CT head 06/01/2024 FINDINGS: There is a small focus of restricted diffusion in the right periventricular white matter near the posterior horn of the lateral ventricle. The white matter is unremarkable. The ventricular system is normal in appearance. No mass is seen. There is no mass effect or midline shift. There is a tiny focus of restricted diffusion in the left internal capsule. No extra axial fluid collections are seen. The corpus callosum, pituitary gland, and cerebellar tonsils appear grossly unremarkable. Flow voids of the major intracranial arterial vessels are identified. The imaged portions of the paranasal sinuses, mastoid air cells, and orbits are unremarkable. IMPRESSION: Restricted diffusion in the right periventricular white matter compatible with tiny acute infarct. No evidence of hemorrhagic transformation. ACT 112: Negative or not required by law. Electronically signed by: Peewee Zuniga M.D. 06/01/2024 3:28 PM Carotid Doppler Study 06/01/24 11:17 ULTRASOUND OF THE CAROTID ARTERIES CLINICAL HISTORY: Stroke like symptoms TECHNIQUE: Real-time, grayscale, and color Doppler sonography of the bilateral carotid arteries is performed. Images are reviewed in the transverse and longitudinal planes. COMPARISON: None available at the time of this dictation. FINDINGS: The carotid arteries are patent bilaterally and demonstrate antegrade flow. There is no atherosclerotic plaque on the right and no atherosclerotic plaque on the left. Normal doppler arterial waveforms are seen throughout. Velocity measurements are listed below. Common carotid peak systolic velocity (cm/sec): RIGHT: 83 LEFT: 38 ICA peak systolic velocity (cm/sec): RIGHT: 46 LEFT: 53 ICA/CC peak systolic ratio: RIGHT: 0.6 LEFT: 1.7 Antegrade flow was shown in the vertebral arteries. The external carotid arteries are patent. The right carotid artery is noted to be tortuous. IMPRESSION: 1. There is no sonographic evidence of hemodynamically significant stenosis in the right or left carotid arterial system. 2. Antegrade flow is shown in the vertebral arteries. Society of Radiologists in Ultrasound consensus guidelines: Normal: ICA PSV is <125 cm/sec and no plaque or intimal thickening is visible sonographically additional criteria include ICA/CCA PSV ratio <2.0 and ICA EDV <40 cm/sec <50% ICA stenosis: ICA PSV is <125 cm/sec and plaque or intimal thickening is visible sonographically additional criteria include ICA/CCA PSV ratio <2.0 and ICA EDV <40 cm/sec 50-69% ICA stenosis: ICA PSV is 125-230 cm/sec and plaque is visible sonographically additional criteria include ICA/CCA PSV ratio of 2.0-4.0 and ICA EDV of 40-100 cm/sec ?70% ICA stenosis but less than near occlusion: ICA PSV is >230 cm/sec and visible plaque and luminal narrowing are seen at baez-scale and color Doppler ultrasound (the higher the Doppler parameters lie above the threshold of 230 cm/sec, the greater the likelihood of severe disease) additional criteria include ICA/CCA PSV ratio >4 and ICA EDV >100 cm/sec ACT 112: Negative or not required by law. Electronically signed by: Peewee Zuniga M.D. 06/01/2024 4:04 PM Head MRA 06/01/24 11:17 MR angio head wo con CLINICAL HISTORY: Stroke like symptoms TECHNIQUE: 3D time of flight MRA of the head was performed without intravenous contrast. 3-D reconstructions were obtained in multiple planes. Comparison: None available at the time of this dictation. FINDINGS: Flow signal is shown in the intracranial segments of the internal carotid arteries, the anterior, middle and posterior cerebral arteries, the anterior and posterior communicating arteries, cerebellar arteries, the intracranial segments of the vertebral arteries, and the basilar artery. No aneurysm, arteriovenous malformation, dissection, nor hemodynamically significant flow stenosis is shown. Assessment of stenosis of the internal carotid arteries is based on NASCET criteria. IMPRESSION: No evidence of acute intracranial abnormality. In particular, no occlusion, hemorrhage, or aneurysmal disease is seen. ACT 112: Negative or not required by law. Electronically signed by: Peewee Zuniga M.D. 06/01/2024 3:24 PM PG Care Time/CCT Total # of Minutes Spent Total Time Spent with Patient: Total time spent is greater than 50% in coordination of care (as documented) at patient's floor/unit and/or counseling patient: Coding Level of Care Code 13972 SUB INP/OBS CARE 3/50MIN Diagnoses Stroke-like symptoms R29.90 Hypertension I10 Lyme disease A69.20 Periapical abscess K04.7 Hypomagnesemia E83.42 Elevated troponin R79.89
--- NOTE | 2024-06-02 08:45 | Neurology Consultation ---
Date of Consultation June 02, 2024 Assessment & Plan (1) Acute CVA (cerebrovascular accident): (2) Acute left hemiparesis: (3) Sensory deficit, left: (4) Hypertension: (5) Chronic cerebral ischemia: Plan This patient had an acute onset, relatively small, right periventricular stroke, likely due to small vessel ischemic disease (from hypertensive cerebrovascular disease). This has resulted in face and arm greater than leg weakness and numbness. There are are no speech deficits or visual problems. This patient's biggest risk factor is hypertension. She has significant (for age) diffuse small vessel ischemic disease likely from hypertension as well. Glucose was mildly elevated as was cholesterol. Hemoglobin A1c is pending. Echocardiogram is pending. Recommendations: 1. Continue 81 mg aspirin plus 75 mg clopidogrel daily for 3 weeks and then discontinue the aspirin and remain on clopidogrel alone. The extent/severity of the small vessel ischemic disease leans me towards clopidogrel long-term as opposed to aspirin. 2. Control blood pressure as you are doing. Aim for a mean arterial pressure of approximately 100 at first and then can lower a little more from there over time. 3. Awaiting echocardiogram 4. This patient would be a high-dose statin candidate. 5. Physical and Occupational Therapy consults. Increase activity as able. 6. This patient needs a PCP to continue to treat her as an outpatient 7. I can follow-up in 3 to 4 weeks after discharge as an outpatient (one of the neurology PAs in the office) Overall, I spent a total of 85 minutes with this case including review of records, review of MRI films, direct evaluation the patient at bedside, report generation, and discussion of the case with the patient and RN at bedside, and Dr. Newton, including differential diagnosis and treatment options. History of Present Illness Reason for Consultation: Patient is a 53-year-old, who was asked to see the request of Dr. Hale, for neurologic consultation regarding stroke Requesting Physician: Dr. Cantrell Attending Physician: Saige Newton MD History of Present Illness This patient really has not seen any doctors for years. She has no significant medical history that she is aware including issues with blood pressure, heart, glucose, or lipids. She was on no medication prior to admission Throughout much of May 30 including into May 31 the patient felt tired in general. Her appetite was poor and she felt as if she had a virus (she states that she has felt this way each time she has had COVID). On May 31 she was very busy working around the house shopping and cooking. Around 1800, while folding close, she had the sudden onset of weakness in the left hand. At that time she did not have any leg or face issue and there was no numbness. She had no pain or headache and there was no speech or mentation problems. Her vision was not affected. She decided to go to sleep around 1999. She awoke on June 01 at 0300 and noticed that her left leg was weak and she slid out of bed. She then went to the couch called family but she did not get to the emergency room until almost 9:00 in the morning June 01. Between the time she woke up at 3:00 at the time she got to the emergency room she noted numbness and dysesthesias in the left face, arm, and leg as well as weakness in her face arm and leg. She had no speech or mentation problem. She arrived the emergency room at 0854, with a blood pressure of 205/135, pulse 89, temperature 36.3, respiratory rate 20, and O2 saturation 93%. Her blood pressure has remained high despite treatment since admission On examination she had a left facial droop with some weakness and drift in the left upper extremity. There was decreased sensation on the left arm and leg. CBC was unremarkable. CHEM profile showed a mildly elevated glucose but was otherwise unremarkable. CT scan of the head was unremarkable. Chest x-ray showed no acute changes. Because of a reported "severe allergy" to x-ray dye, she did not have CT angiography of the head and neck. Carotid ultrasound showed no significant stenoses or anomalies. MR angiography of the head showed no vascular stenoses or anomalies either. MRI of the brain revealed a small right periventricular acute infarct. In addition there was extensive small vessel ischemic disease for age. I reviewed these films with the patient. Yesterday she was feeling better and was walking better with less weakness. This morning she feels weaker than yesterday afternoon (but not as bad as she did on admission). She feels her left leg has strength again but the face and arm are about the same. Allergies Allergy/AdvReac Type Severity Reaction Status Date / Time bee venom protein (honey bee) Allergy Intermediate Unknown Verified 06/01/24 11:31 iodine Allergy Mild Unknown Verified 06/01/24 11:31 Penicillins Allergy Mild Unknown Verified 06/01/24 11:31 CONTRASTMEDIA Allergy Mild Unknown Uncoded 06/01/24 11:31 Home Medications Medication Instructions Recorded Confirmed Type Apple Cider Vinegar Gummy 1 tab PO DAILY 06/01/24 06/01/24 History ibuprofen 200 mg tablet (Advil) 400 mg PO Q6H PRN Pain 06/01/24 06/01/24 History Patient History Surgical History S/P twice Family History Mother Diabetes Hypertension Social History (Updated 06/02/24 @ 08:51 by Juan Patten MD) Smoking Status: Never smoker Hx Alcohol Use: Yes Alcohol type: hard liquor Alcohol Intake Frequency: 2-3 x/Week Alcohol Intake Frequency Comment: 1-2 drinks of alcohol per week. 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 Feels Safe at Home: Yes Assistive Devices: Glasses Review of Systems Constitutional: no fever, no fatigue and no weakness Eyes: no diplopia, no eye pain and no worsening vision Ear, Nose, Mouth, Throat: no ear pain, no tinnitus, no hearing loss, no dizziness, no snoring, no hoarseness and no dysphagia Respiratory: no cough and no dyspnea Cardiovascular: no chest pain, no palpitations and no lightheadedness Gastrointestinal: no abdominal pain, no nausea and no vomiting Genitourinary: no dysuria, no urinary frequency and no urinary incontinence Musculoskeletal: no back pain, no neck pain, no radicular pain, no joint pain and no myalgia Integumentary: no rash and no lesions Neurologic: + gait abnormality, + localized weakness and + numbness; no generalized weakness, no tingling, no tremor(s), no abnormal movements, no headache(s), no abnormal speech, no confusion and no memory loss Psychiatric: no depression, no irritability, no anxiety, no difficulty concentrating, no confusion and no hallucinations Endocrine: no fatigue and no flushing Hematologic / Lymphatic: no easy bleeding and no easy bruising Allergy / Immunological: no urticaria and no problem reported Exam (Neuro) Physical Exam: The patient is right-handed. The patient is awake, alert, and attentive. Speech is normal without any obvious aphasia or dysarthria. Mentation and thought processes are intact, with full orientation and normal fund of knowledge. Mood and affect are normal and appropriate. Appearance and grooming are normal. Short and long-term memory are intact. Pupils are 3 mm bilaterally and reactive to light. Extraocular eye muscles are intact without nystagmus. Visual acuity and visual stewart seem normal grossly to confrontation. There are no deficits to sensation in the in V1 on the left but V2 and V3 have decreased sensation compared to the right side which is all normal. Corneal reflexes are positive bilaterally. There is an obvious facial droop at the corner of the mouth on the left. It moves some with voluntary command. There is no other weakness of the face bilaterally. Hearing seems intact grossly to voice and finger rub bilaterally. Palate moves well without asymmetry. There is normal sternocleidomastoid and trapezius strength bilaterally. Tongue is midline with good strength bilaterally. Neck has a full range of motion without discomfort. There are no cervical bruits bilaterally. There are no cranial or ocular bruits. Heart is without murmur. There is a regular rhythm and rate. Cervical, thoracic, and lumbar spine are nontender to palpation. Gait is narrow based, although somewhat cautious, with good arm swing, turns, and stance. Balance is normal eyes open or closed. With outstretched arms there is an obvious drift on the left. There are no resting, postural, or action tremors. There is no ataxia with finger to nose testing. There is decreased facility and clumsiness in the left hand. No other abnormal involuntary movements are noted. Motor strength is 5/5 diffusely in the right upper EXTR including deltoids, biceps, triceps, brachioradialis, wrist flexors and extensors, community relations manager, and intrinsic hand muscles. Left upper extremity strength is 5/5 in the deltoid and triceps, 4/5 in the biceps, wrist flexion extensor community relations manager and intrinsic hand muscles. Motor strength is 5/5 diffusely in the legs bilaterally including hip flexors, quadriceps, hamstrings, gastrocnemius, tibialis anterior, tibialis posterior, and Peroneii muscles bilaterally. Toe extensors are normal and there is good bulk in the extensor digitorum brevis muscles bilaterally. The limbs have no rigidity or spasticity. There is no atrophy noted in the muscles. Muscle bulk is normal, there is no tenderness to palpation, no myotonia to percussion, and no fasciculations seen. Sensory examination reveals decreased sensation diffusely in the left upper extremity proximally and distally with some decrease sensation to pin at the edge distally in the toes and foot (but not the leg) Reflexes are 2/4 in the biceps, triceps, brachioradialis, quadriceps, and Achilles tendons bilaterally. Toes are downgoing with plantar stimulation on the right and equivocal on the left. Peripheral pulses are present and of normal quality distally in all 4 limbs. There is no peripheral edema noted in the limbs. Results & Data Vital Signs (Past 12 Hours) Vital Signs Temp Pulse Pulse Resp BP BP Pulse Ox 06/02/24 08:24 67 200/118 H 06/02/24 07:49 36.3 C L 83 18 214/116 H 94 06/02/24 07:20 64 06/02/24 02:37 36.5 C 83 18 190/82 H 97 06/01/24 22:41 36.3 C L 73 18 195/75 H 95 06/01/24 21:46 86 187/92 H 06/01/24 21:35 75 O2 Del Method 06/02/24 08:24 06/02/24 07:49 Room Air 06/02/24 07:20 06/02/24 02:37 Room Air 06/01/24 22:41 Room Air 06/01/24 21:46 06/01/24 21:35 PG Care Time/CCT Total # of Minutes Spent Total Time Spent with Patient: Total time spent is greater than 50% in coordination of care (as documented) at patient's floor/unit and/or counseling patient: Coding Level of Care Code 76929 INT INP/OBS CARE 375MIN Diagnoses Acute CVA (cerebrovascular accident) I63.9 Acute left hemiparesis G81.94 Sensory deficit, left R44.9 Hypertension I10 Chronic cerebral ischemia I67.82 Time Spent (min) 85
[2024-06-02] MEDS: ASPIRIN 81 MG ECTAB PO SCH (08:55)
[2024-06-02] MEDS: CLOPIDOGREL BISULFATE 75 MG TAB PO SCH (08:55)
[2024-06-02] MEDS: hydrALAZINE HCL 20 MG/ML VIAL IV STA (09:08)
[2024-06-02 09:21] LABS: Estimated Average Glucose 97 mg/dl
[2024-06-02] MEDS ORDERED: METOPROLOL TARTRATE 25 MG TAB PO SCH (09:30)
[2024-06-02] MEDS: METOPROLOL TARTRATE 25 MG TAB PO SCH (09:54)
--- NOTE | 2024-06-02 10:37 | Pharmacy Report ---
- Date of Service June 02, 2024 - Pharmacy CVA/TIA Medication Review Medications to Prevent Stroke handout has been added to the patients discharge packet. Antiplatelet(s) * aspirin 81 mg PO daily + clopidogrel 75 mg PO daily x 3 weeks, then d/c aspirin Cholesterol * High intensity statin: atorvastatin 40 mg daily DVT Prophylaxis * SCD knee Therapeutic Anticoagulation * No history of Afib/Aflutter noted Type 2 Diabetes * Patient does not have T2DM
--- NOTE | 2024-06-02 13:35 | Ultrasound Report ---
RENAL ARTERY DOPPLER ULTRASOUND CLINICAL HISTORY: Refractory HTN COMPARISON STUDY: No previous studies for comparison. TECHNIQUE: Color and duplex Doppler sonography of the abdominal aorta and renal arteries was radha bowie FINDINGS: Peak systolic velocity within the abdominal aorta was 129 cm/s. The bilateral renal arterie s were partially obscured due to overlying bowel gas. Bilateral renal arteries and veins were patent. No elevated velocities were identified within visualized portions of the renal arteries. IMPRESSION: Bilateral renal arteries partially obscured. Therefore, this exam is nondiagnostic for ev aluation for renal artery stenosis. No elevated velocities within visualized portions of the renal ar teries. ACT 112: Negative or not required by law. Electronically signed by: Beny Norris M.D. 06/02/2024 1:33 PM
--- NOTE | 2024-06-02 20:33 | XCELERA ---
[id number]
[2024-06-02] MEDS: ATORVASTATIN 40 MG TAB PO SCH (20:53)
[2024-06-02] MEDS: DOXYCYCLINE HYCLATE 100 MG CAP PO SCH (20:55)
[2024-06-03 05:57] LABS: Basophils # (auto) 0.04 K/uL (0.00-0.20); Basophils % (auto) 0.6 %; Eosinophils % (auto) 3.2 %; Hematocrit (blood only) 42.4 % (37.0-47.0); Hemoglobin 14.2 g/dl (12.0-16.0); Immature Granulocytes # (auto) 0.02 K/uL (0.01-0.20); Immature Granulocytes % (auto) 0.3 %; Lymphocytes # (auto) 1.27 K/uL (1.20-3.40); Lymphocytes % (auto) 20.5 %; Mean Corpuscular Hemoglobin 30.1 pg (25.0-34.0); Mean Corpuscular Hgb Conc 33.5 g/dL (32.0-36.0); Monocytes # (auto) 0.43 K/uL (0.11-0.59); Monocytes % (auto) 6.9 %; Neutrophils # (auto) 4.24 K/uL (1.40-6.50); Neutrophils % (auto) 68.5 %; Platelet Count 219 K/uL (130-400); RDW Coefficient of Variation 13.6 % (11.5-14.5); RDW Standard Deviation 44.5 fL (36.4-46.3); Red Blood Count 4.71 M/uL (4.20-5.40)
[2024-06-03 06:03] LABS: BUN Creatinine Ratio 17.1 (10-20); Calcium 9.2 mg/dl (8.6-10.3); Est GFR (African American) 113.8 ml/min; Est GFR (Non-African American) 98.2 ml/min; Magnesium 1.8 mg/dl (1.7-2.4); Phosphorus 3.3 mg/dl (2.5-4.9); Potassium 3.6 mmol/L (3.5-5.1)
--- NOTE | 2024-06-03 08:29 | Hospitalist Progress Note ---
Date of Service June 03, 2024 Assessment & Plan (1) Stroke-like symptoms: (2) Hypertension: (3) Lyme disease: (4) Periapical abscess: (5) Hypomagnesemia: (6) Elevated troponin: (7) Vitamin D deficiency: Plan #Stroke-like symptoms - Leg weakness that developed around 6 PM on 05/31; slurred speech and left-sided facial droop upon waking at 6:30 AM on 06/01 - Last known well at 6 PM 05/31 - Per telestroke, patient would be outside the window for thrombolytic therapy - Clinically, patient endorses slurred speech, facial droop, and unilateral deficits - Head CT revealed no acute hemorrhage or infarct, but did note an incidental periapical abscess - Brain MRI: restricted difusion in the right periventricular white matter compatible with tiny acute infarct - Head MRA: no evidence of acute intracranial abnormality, in particular no occlusion, hemorrhage, or aneurysmal disease - Carotid Dopplers; no sonographic evidence of hemodynamically significant stenosis in the right or left carotid arterial system, antegrade flow is shown in the vertebral arteries - Echocardiogram with bubble study completed, results pending - [employer]OR recs appreciated, 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 daily initiated - PT/OT evaluations recs rehab - spoke with neurology, DAPT recs appreciated, also cleared to initate PO BP meds #Hypertension: - permissive HTN in the setting of strokelike symptoms - Per telestroke, will slightly reduce measures - Labetalol 5 mg IV q6h as needed for SBP>200 or DBP>110 - started on Metoprolol BID #Lyme disease: - Lyme (+) on arrival - Likely contributing to symptoms - will treat with Doxy 100mg bid Day , last dose on June 11 #Periapical abscess: - Periapical abscess in the left maxillary premolar noted on head CT - Patient endorses ongoing tooth pain x several years - No leukocytosis; afebrile - PCN allergy, but patient is unsure if it is a true allergy and is unsure what happens when she takes PCN - Reached out to oral surgery (Dr. Elam) - Likely chronic, but will need surgical intervention - Recommended follow-up outpatient upon discharge #Hypomagnesemia: - replete and monitor #Vitamin D deficiency - Vit D: 11.9 (06/03/24) - started on cholecalciferol #Elevated troponin: - 20-->19; no CP; continue telemetry monitoring Disposition: pending clinical improvement, currently in PCU telemetry Full code VTE PPx: SCDs; start on ASA + Plavix 06/02: pt's daughter and son at bedside Admission and Anticipated Discharge Date Admission Date: June 01, 2024 Subjective No acute events overnight Currently very tearful Review of Systems Review of Systems: Comprehensive ROS completed Physical Exam Physical Exam: Gen: no acute distress, lying in bed comfortable HEENT: NC/AT CVS: s1s2 nl, no murmurs/rubs/gallops Lungs: CTAB Abd: protuberant, nl bowel sounds, soft, nontender : no smith Extremities: no edema Neuro: decreased sensation left face / left forearm & hand / left toes, left facial drooping, left arm weakness Psych: very tearful Results & Data Results & Data Vital Signs (Past 12 Hours) Vital Signs Temp Pulse Pulse Resp BP BP Pulse Ox 06/03/24 07:34 36.3 C L 74 18 94 06/03/24 03:24 188/96 H 06/03/24 02:38 67 206/108 H 06/03/24 02:35 36.6 C 67 18 206/108 H 96 06/02/24 23:08 36.6 C 75 18 196/98 H 98 06/02/24 22:25 65 O2 Del Method 06/03/24 07:34 Room Air 06/03/24 03:24 06/03/24 02:38 06/03/24 02:35 Room Air 06/02/24 23:08 Room Air 06/02/24 22:25 Laboratory Results Abnormal lab results 06/03/24 Range/Units 05:16 Glucose 126 H (70-99(Fasting)) mg/dl 25-OH Vitamin D Total 11.9 L (30-100) ng/ml PG Care Time/CCT Total # of Minutes Spent Total Time Spent with Patient: Total time spent is greater than 50% in coordination of care (as documented) at patient's floor/unit and/or counseling patient: Coding Level of Care Code 88107 SUB INP/OBS CARE 350MIN Diagnoses Stroke-like symptoms R29.90 Hypertension I10 Lyme disease A69.20 Periapical abscess K04.7 Hypomagnesemia E83.42 Elevated troponin R79.89 Vitamin D deficiency E55.9
[2024-06-03] MEDS: METOPROLOL TARTRATE 25 MG TAB PO SCH (09:07)
[2024-06-03] MEDS: CHOLECALCIFEROL 25 MCG (1000 UNITS) TAB PO SCH (14:25)
[2024-06-04 06:36] LABS: Basophils # (auto) 0.05 K/uL (0.00-0.20); Basophils % (auto) 0.8 %; Eosinophils # (auto) 0.24 K/uL (0.00-0.50); Eosinophils % (auto) 3.8 %; Hematocrit (blood only) 43.4 % (37.0-47.0); Hemoglobin 14.2 g/dl (12.0-16.0); Immature Granulocytes # (auto) 0.02 K/uL (0.01-0.20); Immature Granulocytes % (auto) 0.3 %; Lymphocytes # (auto) 1.51 K/uL (1.20-3.40); Mean Corpuscular Hemoglobin 29.8 pg (25.0-34.0); Mean Corpuscular Hgb Conc 32.7 g/dL (32.0-36.0); Mean Corpuscular Volume 91.2 fL (80.0-100.0); Mean Platelet Volume 11.8 fL (9.4-12.4); Monocytes # (auto) 0.57 K/uL (0.11-0.59); Monocytes % (auto) 9.1 %; Platelet Count 206 K/uL (130-400); RDW Coefficient of Variation 13.5 % (11.5-14.5); RDW Standard Deviation 45.3 fL (36.4-46.3); Red Blood Count 4.76 M/uL (4.20-5.40); White Blood Count 6.29 K/ul (4.8-10.8)
[2024-06-04 07:07] LABS: BUN Creatinine Ratio 19.5 (10-20); Calcium 8.9 mg/dl (8.6-10.3); Est GFR (African American) 101.5 ml/min; Est GFR (Non-African American) 87.5 ml/min; Magnesium 1.8 mg/dl (1.7-2.4); Phosphorus 3.5 mg/dl (2.5-4.9); Potassium 3.8 mmol/L (3.5-5.1)
--- NOTE | 2024-06-04 08:12 | Hospitalist Progress Note ---
Date of Service June 04, 2024 Assessment & Plan (1) Stroke-like symptoms: (2) Hypertension: (3) Lyme disease: (4) Periapical abscess: (5) Hypomagnesemia: (6) Elevated troponin: (7) Vitamin D deficiency: Plan #Stroke-like symptoms - Leg weakness that developed around 6 PM on 05/31; slurred speech and left-sided facial droop upon waking at 6:30 AM on 06/01 - Last known well at 6 PM 05/31 - Per telestroke, patient would be outside the window for thrombolytic therapy - Clinically, patient endorses slurred speech, facial droop, and unilateral deficits - Head CT revealed no acute hemorrhage or infarct, but did note an incidental periapical abscess - Brain MRI: restricted diffusion in the right periventricular white matter compatible with tiny acute infarct - Head MRA: no evidence of acute intracranial abnormality, in particular no occlusion, hemorrhage, or aneurysmal disease - Carotid Dopplers; no sonographic evidence of hemodynamically significant stenosis in the right or left carotid arterial system, antegrade flow is shown in the vertebral arteries - Echocardiogram with bubble study completed, results pending - 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 daily initiated - PT/OT evaluations recs rehab - per neurology, DAPT recs appreciated, also cleared to initate PO BP meds #Hypertension: - permissive HTN in the setting of strokelike symptoms - Per telestroke, will slightly reduce measures - Labetalol 5 mg IV q6h as needed for SBP>200 or DBP>110 - started on Metoprolol BID #Lyme disease: - Lyme (+) on arrival - Likely contributing to symptoms - will treat with Doxy 100mg bid, last dose on June 11 #Periapical abscess: - Periapical abscess in the left maxillary premolar noted on head CT - Patient endorses ongoing tooth pain x several years - No leukocytosis; afebrile - PCN allergy, but patient is unsure if it is a true allergy and is unsure what happens when she takes PCN - Reached out to oral surgery (Dr. Elam) - Likely chronic, but will need surgical intervention - Recommended follow-up outpatient upon discharge #Hypomagnesemia: - replete and monitor #Vitamin D deficiency - Vit D: 11.9 (06/03/24) - started on cholecalciferol #Elevated troponin: - 20-->19; no CP; continue telemetry monitoring Disposition: pending placement Full code VTE PPx: SCDs; start on ASA + Plavix 06/02: pt's daughter and son at bedside Admission and Anticipated Discharge Date Admission Date: June 01, 2024 Subjective No acute events overnight Better mood States her arm is getting stronger no new complaints Review of Systems Review of Systems: Comprehensive ROS completed Physical Exam Physical Exam: Gen: no acute distress, lying in bed comfortable HEENT: NC/AT CVS: s1s2 nl, no murmurs/rubs/gallops Lungs: CTAB Abd: protuberant, nl bowel sounds, soft, nontender : no smith Extremities: no edema Neuro: decreased sensation left face / left forearm & hand / left toes, left facial drooping, left arm weakness (improving) Psych: very tearful Results & Data Results & Data Vital Signs (Past 12 Hours) Vital Signs Temp Pulse Pulse Resp BP Pulse Ox O2 Del Method 06/04/24 07:21 36.6 C 78 18 93 Room Air 06/04/24 02:50 36.4 C L 71 19 150/80 H 94 Room Air 06/03/24 22:49 36.8 C 60 19 158/82 H 96 Room Air 06/03/24 22:30 68 PG Care Time/CCT Total # of Minutes Spent Total Time Spent with Patient: Total time spent is greater than 50% in coordination of care (as documented) at patient's floor/unit and/or counseling patient: Coding Level of Care Code 80334 SUB INP/OBS CARE 3/50MIN Diagnoses Stroke-like symptoms R29.90 Hypertension I10 Lyme disease A69.20 Periapical abscess K04.7 Hypomagnesemia E83.42 Elevated troponin R79.89 Vitamin D deficiency E55.9
[2024-06-04] MEDS: ACETAMINOPHEN 325 MG TAB PO PRN (09:52)
[2024-06-05 06:24] LABS: Hematocrit (blood only) 44.6 % (37.0-47.0); Hemoglobin 14.7 g/dl (12.0-16.0); Mean Corpuscular Hemoglobin 29.8 pg (25.0-34.0); Mean Corpuscular Volume 90.5 fL (80.0-100.0); Platelet Count 192 K/uL (130-400); RDW Coefficient of Variation 13.3 % (11.5-14.5); RDW Standard Deviation 43.9 fL (36.4-46.3); Red Blood Count 4.93 M/uL (4.20-5.40); White Blood Count 5.84 K/ul (4.8-10.8)
[2024-06-05 06:41] LABS: BUN Creatinine Ratio 21.2 (10-20); Calcium 8.7 mg/dl (8.6-10.3); Creatinine Clr Calc Pharmacy 117.6 ml/min; Est GFR (African American) 116.1 ml/min; Est GFR (Non-African American) 100.1 ml/min; Magnesium 1.7 mg/dl (1.7-2.4); Phosphorus 3.1 mg/dl (2.5-4.9); Potassium 3.9 mmol/L (3.5-5.1)
--- NOTE | 2024-06-05 08:51 | Neurology Progress Note ---
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 This has resulted in face and arm greater than leg weakness and numbness. There are are no speech deficits or visual problems (except for some very mild dysarthria at times from the facial droop). Currently her dysesthesias and numbness are resolved and her weakness is improved both in the face and arm on the left. Her left leg seems to be strong and she is walking well. This patient's biggest risk factor is hypertension. She has significant (for age) diffuse small vessel ischemic disease likely from hypertension as well. Glucose was mildly elevated as was cholesterol. Hemoglobin A1c was normal at 5.0. Blood pressure is improved over the last 2 to 3 days compared to admission. Recommendations: 1. Continue 81 mg aspirin plus 75 mg clopidogrel daily for 3 weeks and then discontinue the aspirin and remain on clopidogrel alone. The extent/severity of the small vessel ischemic disease leans me towards clopidogrel long-term as opposed to aspirin. 2. Control blood pressure as you are doing. Aim for a mean arterial pressure of approximately 100 at first and then can lower a little more from there over time. 3. Consider fluoxetine 20 mg daily for depression 4. Continue atorvastatin 40 mg daily. 5. Continue physical and Occupational Therapy consults. She would be a good rehabilitation Hospital candidate. 6. This patient needs a PCP to continue to treat her as an outpatient 7. I can follow-up in 3 to 4 weeks after discharge as an outpatient (one of the neurology PAs in the office) Overall, I spent a total of 50 minutes with this case including review of records, review of MRI films, direct evaluation the patient at bedside, report generation, and discussion of the case with the patient and RN at bedside, and Dr. Branch, including differential diagnosis and treatment options. Admission and Anticipated Discharge Date Admission Date: June 01, 2024 Subjective Patient is feeling much better with her strength including her left face and her left upper extremity. She is able to use her hand more. She is walking and made a lap around the unit. Her mood is down and she has been tearful most days. Blood pressure was much better over the weekend but today was 177/105. CBC and CHEM profile were unremarkable. Vitamin D was low at 11.9. She is on 1000 u nits a day. Echocardiogram was largely unremarkable. Results & Data Vital Signs (Past 12 Hours) Vital Signs Temp Pulse Pulse Resp BP Pulse Ox O2 Del Method 06/05/24 07:50 177/105 H 06/05/24 07:28 36.6 C 68 17 92 Room Air 06/05/24 02:31 36.5 C 70 17 174/76 H 94 Room Air 06/04/24 22:49 36.7 C 67 18 152/86 H 96 Room Air 06/04/24 21:58 59 L Exam (Neuro) Physical Exam: She is awake and alert. Speech is without obvious aphasia or dysarthria although she can slur a little bit when her facial droop is more obvious (end of the day). She repeated test phrases quite well. Extraocular eye muscles are intact without nystagmus. There is a moderate facial droop on the left. It moves nicely with voluntary smile. Tongue is midline and moves normally bilaterally. Neck is supple. With outstretched arms there is mild drift on the left (less than 7/5). There is clumsiness in the left hand and 4/5 strength. It is moving however much better than it was on June 02. Motor strength is 5/5 diffusely in the deltoids and triceps bilaterally. The rest of the right upper extremity is 5/5. The biceps is 4/5 on the left. Leg strength is 5/5 diffusely in all major muscle groups both proximally and distally. Reflexes are 2/4 in all 4 limbs although the left upper extremity reflexes are brisker than the right. PG Care Time/CCT Total # of Minutes Spent Total Time Spent with Patient: Total time spent is greater than 50% in coordination of care (as documented) at patient's floor/unit and/or counseling patient: Coding Level of Care Code 03547 SUB INP/OBS CARE 3/50MIN Diagnoses Acute CVA (cerebrovascular accident) I63.9 Acute left hemiparesis G81.94 Hypertension I10 Vitamin D deficiency E55.9 Depression F32.A Sensory deficit, left R44.9 Chronic cerebral ischemia I67.82
--- NOTE | 2024-06-05 13:48 | Hospitalist Progress Note ---
Date of Service June 05, 2024 Assessment & Plan (1) Stroke-like symptoms: (2) Hypertension: (3) Lyme disease: (4) Periapical abscess: (5) Hypomagnesemia: (6) Elevated troponin: (7) Vitamin D deficiency: Plan #Acute stroke - Leg weakness that developed around 6 PM on 05/31; slurred speech and left-sided facial droop upon waking at 6:30 AM on 06/01 - Last known well at 6 PM 05/31 - Per telestroke, patient was outside the window for thrombolytic therapy - Head CT revealed no acute hemorrhage or infarct, but did note an incidental periapical abscess - Brain MRI: restricted diffusion in the right periventricular white matter compatible with tiny acute infarct - Head MRA: no evidence of acute intracranial abnormality, in particular no occlusion, hemorrhage, or aneurysmal disease - Carotid Dopplers; no sonographic evidence of hemodynamically significant stenosis in the right or left carotid arterial system, antegrade flow is shown in the vertebral arteries - Echocardiogram with bubble study completed, No evidence of shunt - Neurology consulted, pressure recommendations. -Continue aspirin and Plavix and after 21 days discontinue aspirin. - Atorvastatin 40 mg p.o. daily initiated - PT/OT evaluations recs rehab #Hypertension: - permissive HTN in the setting of acute stroke - Per telestroke, will slightly reduce measures - Labetalol 5 mg IV q6h as needed for SBP>200 or DBP>110 - started on Metoprolol BID #Lyme disease: - Lyme (+) on arrival - Likely contributing to symptoms - will treat with Doxy 100mg bid, last dose on June 11 #Periapical abscess: - Periapical abscess in the left maxillary premolar noted on head CT - Patient endorses ongoing tooth pain x several years - No leukocytosis; afebrile - PCN allergy, but patient is unsure if it is a true allergy and is unsure what happens when she takes PCN - Reached out to oral surgery (Dr. Elam) - Likely chronic, but will need surgical intervention - Recommended follow-up outpatient upon discharge #Hypomagnesemia: - replete and monitor #Vitamin D deficiency - Vit D: 11.9 (06/03/24) - started on cholecalciferol 125mcg (Equivalent of 5000 units) #Elevated troponin: - 20-->19; no CP; continue telemetry monitoring Depression Depressed from the stroke Started on low-dose fluoxetine Disposition: pending placement Full code VTE PPx: SCDs; start on ASA + Plavix Admission and Anticipated Discharge Date Admission Date: June 01, 2024 Subjective Patient seen and examined, still has some facial droop on the left upper extremity weakness Review of Systems Review of Systems: All systems reviewed are negative, apart from the ones contained in the history. Physical Exam Physical Exam: The patient is awake, alert and oriented 3, well developed and well nourished, normocephalic and atraumatic, lying in bed and in no acute distress. HEENT--PERRL, EOMI, mucous membranes and oropharynx mildly dry Neck--supple. No JVD. No bruits. Thyroid normal, trachea midline, no adenopathy. Heart--normal S1 and S2. No murmurs, rubs or gallops. Lungs--clear bilaterally, no respiratory distress, no accessory muscle use. Abdomen--normal bowel sounds and soft. Extremities--no cyanosis or clubbing. No edema. Dermatologic--normal skin turgor, normal color, no abnormal lymph nodes, no rash. Neurologic--cranial nerves II through XII grossly intact.Left upper extremity weakness, facial droop Rheumatologic--normal range of motion. Psychiatric--normal affect. Results & Data Results & Data Vital Signs (Past 12 Hours) Vital Signs Temp Pulse Resp BP Pulse Ox O2 Del Method 06/05/24 11:06 97.3 F L 54 L 16 168/78 H 94 Room Air 06/05/24 07:50 177/105 H 06/05/24 07:28 97.9 F 68 17 92 Room Air 06/05/24 02:31 97.7 F 70 17 174/76 H 94 Room Air PG Care Time/CCT Total # of Minutes Spent Total Time Spent with Patient: Total time spent is greater than 50% in coordination of care (as documented) at patient's floor/unit and/or counseling patient: Coding Level of Care Code 32007 SUB INP/OBS CARE 2/35MIN Diagnoses Stroke-like symptoms R29.90 Hypertension I10 Lyme disease A69.20 Periapical abscess K04.7 Hypomagnesemia E83.42 Elevated troponin R79.89 Vitamin D deficiency E55.9 Time Spent (min) 35
[2024-06-05] MEDS: hydrALAZINE HCL 20 MG/ML VIAL IV STA (15:24)
[2024-06-06 06:37] LABS: Hematocrit (blood only) 43.4 % (37.0-47.0); Hemoglobin 14.3 g/dl (12.0-16.0); Mean Corpuscular Hemoglobin 29.8 pg (25.0-34.0); Mean Corpuscular Hgb Conc 32.9 g/dL (32.0-36.0); Mean Corpuscular Volume 90.4 fL (80.0-100.0); Platelet Count 198 K/uL (130-400); RDW Coefficient of Variation 13.4 % (11.5-14.5); RDW Standard Deviation 44.1 fL (36.4-46.3); White Blood Count 5.88 K/ul (4.8-10.8)
[2024-06-06 06:57] LABS: BUN Creatinine Ratio 25.4 (10-20); Calcium 9.1 mg/dl (8.6-10.3); Creatinine Clr Calc Pharmacy 114.6 ml/min; Est GFR (African American) 115.5 ml/min; Est GFR (Non-African American) 99.7 ml/min; Potassium 3.8 mmol/L (3.5-5.1)
[2024-06-06] MEDS: CHOLECALCIFEROL 125 MCG (5,000 UNITS) TAB PO SCH (08:13)
[2024-06-06] MEDS: FLUoxetine HCL 10 MG CAP PO SCH (08:14)
--- NOTE | 2024-06-06 10:42 | Electrocardiogram Report ---
Test Reason : Blood Pressure : / mmHG Vent. Rate : 074 BPM Atrial Rate : 074 BPM P-R Int : 158 ms QRS Dur : 082 ms QT Int : 432 ms P-R-T Axes : 056 004 027 degrees QTc Int : 479 ms Normal sinus rhythm Minimal voltage criteria for LVH, may be normal variant Abnormal ECG When compared with ECG of 01-JUN-2024 09:10, No significant change was found Confirmed by Saeid Parsons ([id number] on 06/06/2024 10:41:55 AM Referred By: REFERRED SELF Confirmed By:Fermin Parsons
--- NOTE | 2024-06-06 12:18 | Hospitalist Progress Note ---
Date of Service June 06, 2024 Assessment & Plan (1) Stroke-like symptoms: (2) Hypertension: (3) Lyme disease: (4) Periapical abscess: (5) Hypomagnesemia: (6) Elevated troponin: (7) Vitamin D deficiency: Plan #Acute stroke - Leg weakness that developed around 6 PM on 05/31; slurred speech and left-sided facial droop upon waking at 6:30 AM on 06/01 - Last known well at 6 PM 05/31 - Per telestroke, patient was outside the window for thrombolytic therapy - Head CT revealed no acute hemorrhage or infarct, but did note an incidental periapical abscess - Brain MRI: restricted diffusion in the right periventricular white matter compatible with tiny acute infarct - Head MRA: no evidence of acute intracranial abnormality, in particular no occlusion, hemorrhage, or aneurysmal disease - Carotid Dopplers; no sonographic evidence of hemodynamically significant stenosis in the right or left carotid arterial system, antegrade flow is shown in the vertebral arteries - Echocardiogram with bubble study completed, No evidence of shunt - Neurology consulted, pressure recommendations. -Continue aspirin and Plavix and after 21 days discontinue aspirin. - Atorvastatin 40 mg p.o. daily initiated - PT/OT evaluations recs rehab -Left upper extremity strength continues to improve #Hypertension: -Patient now outside of the window for permissive hypertension - Labetalol 5 mg IV q6h as needed for SBP>200 or DBP>110 - started on Metoprolol BID #Lyme disease: - Lyme (+) on arrival - Likely contributing to symptoms - will treat with Doxy 100mg bid, last dose on June 11 #Periapical abscess: - Periapical abscess in the left maxillary premolar noted on head CT - Patient endorses ongoing tooth pain x several years - No leukocytosis; afebrile - PCN allergy, but patient is unsure if it is a true allergy and is unsure what happens when she takes PCN - Reached out to oral surgery (Dr. Elam) - Likely chronic, but will need surgical intervention - Recommended follow-up outpatient upon discharge #Hypomagnesemia: - replete and monitor #Vitamin D deficiency - Vit D: 11.9 (06/03/24) - started on cholecalciferol 125mcg (Equivalent of 5000 units) #Elevated troponin: - 20-->19; no CP; continue telemetry monitoring Depression Depressed from the stroke Started on low-dose fluoxetine Disposition: Patient is medically stable for discharge to rehab Full code VTE PPx: SCDs; start on ASA + Plavix Admission and Anticipated Discharge Date Admission Date: June 01, 2024 Subjective Patient seen and examined, still has some facial droop But her left upper extremity weakness has improved considerably Review of Systems Review of Systems: All systems reviewed are negative, apart from the ones contained in the history. Physical Exam Physical Exam: The patient is awake, alert and oriented 3, well developed and well nourished, normocephalic and atraumatic, lying in bed and in no acute distress. HEENT--PERRL, EOMI, mucous membranes and oropharynx mildly dry Neck--supple. No JVD. No bruits. Thyroid normal, trachea midline, no adenopathy. Heart--normal S1 and S2. No murmurs, rubs or gallops. Lungs--clear bilaterally, no respiratory distress, no accessory muscle use. Abdomen--normal bowel sounds and soft. Extremities--no cyanosis or clubbing. No edema. Dermatologic--normal skin turgor, normal color, no abnormal lymph nodes, no rash. Neurologic--cranial nerves II through XII grossly intact.Left upper extremity weakness, facial droop Rheumatologic--normal range of motion. Psychiatric--normal affect. Results & Data Results & Data Vital Signs (Past 12 Hours) Vital Signs Temp Pulse Pulse Resp BP Pulse Ox O2 Del Method 06/06/24 09:50 71 06/06/24 08:54 98.2 F 63 19 93 Room Air 06/06/24 08:28 68 20 156/86 H 06/06/24 02:58 97.9 F 66 19 168/80 H 93 Room Air PG Care Time/CCT Total # of Minutes Spent Total Time Spent with Patient: Total time spent is greater than 50% in coordination of care (as documented) at patient's floor/unit and/or counseling patient: Coding Level of Care Code 55412 SUB INP/OBS CARE 2/35MIN Diagnoses Stroke-like symptoms R29.90 Hypertension I10 Lyme disease A69.20 Periapical abscess K04.7 Hypomagnesemia E83.42 Elevated troponin R79.89 Vitamin D deficiency E55.9 Time Spent (min) 35
[2024-06-06] MEDS: LORazepam 0.5 MG TAB PO STA (17:10)
[2024-06-06] MEDS: hydroCHLOROthiazide 25 MG TAB PO STA (18:41)
[2024-06-06] MEDS: amLODIPine BESYLATE 5 MG TAB PO ONE (18:41)
[2024-06-06] MEDS: hydrALAZINE HCL 20 MG/ML VIAL IV STA (18:45)
[2024-06-07 06:26] LABS: Hematocrit (blood only) 44.1 % (37.0-47.0); Hemoglobin 14.6 g/dl (12.0-16.0); Mean Corpuscular Hemoglobin 29.9 pg (25.0-34.0); Mean Corpuscular Hgb Conc 33.1 g/dL (32.0-36.0); Mean Corpuscular Volume 90.2 fL (80.0-100.0); Platelet Count 218 K/uL (130-400); RDW Coefficient of Variation 13.6 % (11.5-14.5); RDW Standard Deviation 44.4 fL (36.4-46.3); Red Blood Count 4.89 M/uL (4.20-5.40); White Blood Count 5.99 K/ul (4.8-10.8)
[2024-06-07 06:39] LABS: Calcium 9.1 mg/dl (8.6-10.3); Creatinine Clr Calc Pharmacy 103.5 ml/min; Est GFR (African American) 106.5 ml/min; Est GFR (Non-African American) 91.8 ml/min
[2024-06-07] MEDS: hydroCHLOROthiazide 25 MG TAB PO SCH (08:08)
[2024-06-07] MEDS: amLODIPine BESYLATE 5 MG TAB PO SCH (08:08)
--- NOTE | 2024-06-07 11:32 | Hospitalist Progress Note ---
Date of Service June 07, 2024 Assessment & Plan (1) Stroke-like symptoms: (2) Hypertension: (3) Lyme disease: (4) Periapical abscess: (5) Hypomagnesemia: (6) Elevated troponin: (7) Vitamin D deficiency: Plan #Acute stroke - Leg weakness that developed around 6 PM on 05/31; slurred speech and left-sided facial droop upon waking at 6:30 AM on 06/01 - Last known well at 6 PM 05/31 - Per telestroke, patient was outside the window for thrombolytic therapy - Head CT revealed no acute hemorrhage or infarct, but did note an incidental periapical abscess - Brain MRI: restricted diffusion in the right periventricular white matter compatible with tiny acute infarct - Head MRA: no evidence of acute intracranial abnormality, in particular no occlusion, hemorrhage, or aneurysmal disease - Carotid Dopplers; no sonographic evidence of hemodynamically significant stenosis in the right or left carotid arterial system, antegrade flow is shown in the vertebral arteries - Echocardiogram with bubble study completed, No evidence of shunt - Neurology Recommends to Continue aspirin and Plavix and after 21 days discontinue aspirin. - Atorvastatin 40 mg p.o. daily initiated - PT/OT evaluations recs rehab -Left upper extremity strength continues to improve #Hypertension: -Patient now outside of the window for permissive hypertension - Labetalol 5 mg IV q6h as needed for SBP>200 or DBP>110 - started on Metoprolol BID -Also on hydrochlorothiazide 25 mg daily and amlodipine 5 mg daily #Lyme disease: - Lyme (+) on arrival - Likely contributing to symptoms - will treat with Doxy 100mg bid, last dose on June 11 #Periapical abscess: - Periapical abscess in the left maxillary premolar noted on head CT - Patient endorses ongoing tooth pain x several years - No leukocytosis; afebrile - PCN allergy, but patient is unsure if it is a true allergy and is unsure what happens when she takes PCN - Reached out to oral surgery (Dr. Elam) - Likely chronic, but will need surgical intervention - Recommended follow-up outpatient upon discharge #Hypomagnesemia: - replete and monitor #Vitamin D deficiency - Vit D: 11.9 (06/03/24) - started on cholecalciferol 125mcg (Equivalent of 5000 units) #Elevated troponin: - 20-->19; no CP; continue telemetry monitoring Depression Depressed from the stroke Started on low-dose fluoxetine Disposition: Patient is medically stable for discharge to rehab, Awaiting authorization Full code VTE PPx: SCDs; start on ASA + Plavix Admission and Anticipated Discharge Date Admission Date: June 01, 2024 Subjective Patient seen and examined, still has some facial droop But her left upper extremity weakness has improved considerably Review of Systems Review of Systems: All systems reviewed are negative, apart from the ones contained in the history. Physical Exam Physical Exam: The patient is awake, alert and oriented 3, well developed and well nourished, normocephalic and atraumatic, lying in bed and in no acute distress. HEENT--PERRL, EOMI, mucous membranes and oropharynx mildly dry Neck--supple. No JVD. No bruits. Thyroid normal, trachea midline, no adenopathy. Heart--normal S1 and S2. No murmurs, rubs or gallops. Lungs--clear bilaterally, no respiratory distress, no accessory muscle use. Abdomen--normal bowel sounds and soft. Extremities--no cyanosis or clubbing. No edema. Dermatologic--normal skin turgor, normal color, no abnormal lymph nodes, no rash. Neurologic--cranial nerves II through XII grossly intact.Left upper extremity weakness, facial droop Rheumatologic--normal range of motion. Psychiatric--normal affect. Results & Data Results & Data Vital Signs (Past 12 Hours) Vital Signs Temp Pulse Pulse Resp BP Pulse Ox O2 Del Method 06/07/24 08:05 190/110 H 06/07/24 07:36 97.9 F 61 19 96 Room Air 06/07/24 03:04 97.7 F 65 17 184/76 H 96 Room Air PG Care Time/CCT Total # of Minutes Spent Total Time Spent with Patient: Total time spent is greater than 50% in coordination of care (as documented) at patient's floor/unit and/or counseling patient: Coding Level of Care Code 55867 SUB INP/OBS CARE 2/35MIN Diagnoses Stroke-like symptoms R29.90 Hypertension I10 Lyme disease A69.20 Periapical abscess K04.7 Hypomagnesemia E83.42 Elevated troponin R79.89 Vitamin D deficiency E55.9 Time Spent (min) 35
[2024-06-08 06:31] LABS: Hematocrit (blood only) 45.1 % (37.0-47.0); Hemoglobin 14.9 g/dl (12.0-16.0); Mean Corpuscular Hemoglobin 29.6 pg (25.0-34.0); Mean Corpuscular Volume 89.7 fL (80.0-100.0); Mean Platelet Volume 11.9 fL (9.4-12.4); Platelet Count 210 K/uL (130-400); RDW Coefficient of Variation 13.4 % (11.5-14.5); RDW Standard Deviation 43.8 fL (36.4-46.3); Red Blood Count 5.03 M/uL (4.20-5.40); White Blood Count 5.71 K/ul (4.8-10.8)
[2024-06-08 06:54] LABS: BUN Creatinine Ratio 26.3 (10-20); Calcium 9.3 mg/dl (8.6-10.3); Creatinine Clr Calc Pharmacy 100.9 ml/min; Est GFR (African American) 103.1 ml/min; Est GFR (Non-African American) 88.9 ml/min; Potassium 3.7 mmol/L (3.5-5.1)
[2024-06-08] MEDS: hydroCHLOROthiazide 25 MG TAB PO SCH (08:15)
[2024-06-08] MEDS: amLODIPine BESYLATE 5 MG TAB PO SCH (08:17)
--- NOTE | 2024-06-08 09:05 | Neurology Progress Note ---
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 This has resulted in face and arm, greater than leg, weakness and numbness. There are are no speech deficits or visual problems (except for some very mild dysarthria at times from the facial droop). Currently her dysesthesias and numbness are resolved and her weakness is much improved improved both in the face and arm on the left. Her left leg seems to be strong and she is walking well (back to baseline. This patient's biggest risk factor is hypertension. She has significant (for age) diffuse small vessel ischemic disease likely from hypertension as well. Glucose was mildly elevated as was cholesterol. Hemoglobin A1c was normal at 5.0. Blood pressure is improved overall compared to admission. Patient has depression poststroke which is much improved on low-dose fluoxetine Recommendations: 1. Continue 81 mg aspirin plus 75 mg clopidogrel daily for 3 weeks total, and then discontinue the aspirin and remain on clopidogrel alone. The extent/severity of the small vessel ischemic disease leans me towards clopidogrel long-term as opposed to aspirin. 2. Control blood pressure as you are doing. Aim for a mean arterial pressure of approximately 100 at first and then can lower a little more from there over time. 3. Continue fluoxetine 10 mg daily for mood. 4. Continue atorvastatin 40 mg daily. 5. The patient is improved enough and she really wants to go home. If she is discharged home I would get home physical, occupational, and speech therapy. 6. This patient needs a PCP to continue to treat her as an outpatient 7. I can follow-up in 3 to 4 weeks after discharge as an outpatient (one of the neurology PAs in the office) Overall, I spent a total of 50 minutes with this case including review of records, direct evaluation the patient at bedside, report generation, and discussion of the case with the patient and RN at bedside, the patient's significant other, daughter, and son, and Dr. Branch, including differential diagnosis and treatment options. Admission and Anticipated Discharge Date Admission Date: June 01, 2024 Subjective Patient is doing much better today compared to earlier this week. She is able to walk without issue in her left lower extremity is unremarkable/normal. She believes her face moves better and she has better arm strength. Proximally in the arm she feels strong but distally she has clumsiness in the hand. She denies pain, headaches, vision issues, dizziness, or speech problems. She is less depressed than she was initially following her stroke, but she is getting "angry" because she has not been able to get into [facility] and has been in the hospital all this time. This morning, blood pressure was 170/100 with a pulse of 60 and she was afebrile. CBC and CHEM profile today were unremarkable. Results & Data Vital Signs (Past 12 Hours) Vital Signs Temp Pulse Pulse Resp BP Pulse Ox O2 Del Method 06/08/24 08:00 36.5 C 60 16 170/100 H 97 Room Air 06/08/24 03:01 36.7 C 72 17 172/90 H 93 Room Air 06/07/24 21:10 184/92 H Exam (Neuro) Physical Exam: She is awake and alert. Speech is without aphasia or dysarthria. Mood is reasonable and affect is appropriate. Thought processes are intact with good long and short memory to conversation. Extraocular eye muscles are intact without nystagmus. There is no deficits to sensation on her face. There is a left facial droop but it moves well with voluntary smile. Tongue is midline and strong bilaterally. With outstretched arms there is drift on the left. There is clumsiness in the left hand. There is no tremor or obvious ataxia otherwise bilaterally. Strength is 5/5 diffusely in the right arm and leg both proximally and distally. Strength is 5/5 proximally in the left upper extremity and 4/5 distally. Leg strength on the left is 5/5 diffusely. Patient can stand and walk without difficulty. Turns and stance are essentially normal PG Care Time/CCT Total # of Minutes Spent Total Time Spent with Patient: Total time spent is greater than 50% in coordination of care (as documented) at patient's floor/unit and/or counseling patient: Coding Level of Care Code 57944 SUB INP/OBS CARE 3/50MIN Diagnoses Acute CVA (cerebrovascular accident) I63.9 Acute left hemiparesis G81.94 Hypertension I10 Vitamin D deficiency E55.9 Depression F32.A Sensory deficit, left R44.9 Chronic cerebral ischemia I67.82
[2024-06-08] MEDS ORDERED: METOPROLOL TARTRATE 25 MG TAB PO SCH (09:30)
--- NOTE | 2024-06-08 12:59 | Hospitalist Progress Note ---
Date of Service June 08, 2024 Assessment & Plan (1) Stroke-like symptoms: (2) Hypertension: (3) Lyme disease: (4) Periapical abscess: (5) Hypomagnesemia: (6) Elevated troponin: (7) Vitamin D deficiency: Plan #Acute stroke - Leg weakness that developed around 6 PM on 05/31; slurred speech and left-sided facial droop upon waking at 6:30 AM on 06/01 - Last known well at 6 PM 05/31 - Per telestroke, patient was outside the window for thrombolytic therapy - Head CT revealed no acute hemorrhage or infarct, but did note an incidental periapical abscess - Brain MRI: restricted diffusion in the right periventricular white matter compatible with tiny acute infarct - Head MRA: no evidence of acute intracranial abnormality, in particular no occlusion, hemorrhage, or aneurysmal disease - Carotid Dopplers; no sonographic evidence of hemodynamically significant stenosis in the right or left carotid arterial system, antegrade flow is shown in the vertebral arteries - Echocardiogram with bubble study completed, No evidence of shunt - Neurology Recommends to Continue aspirin and Plavix and after 21 days discontinue aspirin. - Atorvastatin 40 mg p.o. daily initiated - PT/OT evaluations recs rehab -Left upper extremity strength continues to improve -Patient now wants to go home with home physical therapy instead of waiting for rehab #Hypertension: -Patient now outside of the window for permissive hypertension - Labetalol 5 mg IV q6h as needed for SBP>200 or DBP>110 - Will hold metoprolol in view of relative bradycardia, -Also on hydrochlorothiazide 25 mg daily and amlodipine 5 mg daily, BP still not under good control - Increase hydrochlorothiazide to 50 daily and also amlodipine to 10 daily #Lyme disease: - Lyme (+) on arrival - Likely contributing to symptoms - will treat with Doxy 100mg bid, last dose on June 11 #Periapical abscess: - Periapical abscess in the left maxillary premolar noted on head CT - Patient endorses ongoing tooth pain x several years - No leukocytosis; afebrile - PCN allergy, but patient is unsure if it is a true allergy and is unsure what happens when she takes PCN - Reached out to oral surgery (Dr. Elam) - Likely chronic, but will need surgical intervention - Recommended follow-up outpatient upon discharge #Hypomagnesemia: - replete and monitor #Vitamin D deficiency - Vit D: 11.9 (06/03/24) - started on cholecalciferol 125mcg (Equivalent of 5000 units) #Elevated troponin: - 20-->19; no CP; continue telemetry monitoring Depression Depressed from the stroke Started on low-dose fluoxetine Disposition: Patient now wants to go home with home physical therapy instead of waiting for rehab Full code VTE PPx: SCDs; start on ASA + Plavix Admission and Anticipated Discharge Date Admission Date: June 01, 2024 Subjective Patient seen and examined, her strength in the left side continues to improve. Patient now wants to go home with home physical therapy instead of waiting for rehab Review of Systems Review of Systems: All systems reviewed are negative, apart from the ones contained in the history. Physical Exam Physical Exam: The patient is awake, alert and oriented 3, well developed and well nourished, normocephalic and atraumatic, lying in bed and in no acute distress. HEENT--PERRL, EOMI, mucous membranes and oropharynx mildly dry Neck--supple. No JVD. No bruits. Thyroid normal, trachea midline, no adenopathy. Heart--normal S1 and S2. No murmurs, rubs or gallops. Lungs--clear bilaterally, no respiratory distress, no accessory muscle use. Abdomen--normal bowel sounds and soft. Extremities--no cyanosis or clubbing. No edema. Dermatologic--normal skin turgor, normal color, no abnormal lymph nodes, no rash. Neurologic--cranial nerves II through XII grossly intact.Left upper extremity weakness, facial droop Rheumatologic--normal range of motion. Psychiatric--normal affect. Results & Data Results & Data Vital Signs (Past 12 Hours) Vital Signs Temp Pulse Pulse Pulse Resp BP Pulse Ox 06/08/24 08:00 56 L 06/08/24 08:00 97.7 F 60 16 170/100 H 97 06/08/24 03:01 98.1 F 72 17 172/90 H 93 O2 Del Method 06/08/24 08:00 06/08/24 08:00 Room Air 06/08/24 03:01 Room Air PG Care Time/CCT Total # of Minutes Spent Total Time Spent with Patient: Total time spent is greater than 50% in coordination of care (as documented) at patient's floor/unit and/or counseling patient: Coding Level of Care Code 61083 SUB INP/OBS CARE 2/35MIN Diagnoses Stroke-like symptoms R29.90 Hypertension I10 Lyme disease A69.20 Periapical abscess K04.7 Hypomagnesemia E83.42 Elevated troponin R79.89 Vitamin D deficiency E55.9 Time Spent (min) 35
[2024-06-09 02:16] VITALS: BP 168/90
[2024-06-09 07:49] VITALS: RESP 18; TEMP 97.5; O2SAT 94
--- NOTE | 2024-06-09 11:28 | Discharge Summary ---
Date of Service June 09, 2024 Admission HPI Per Admitting Provider Keke is a 53-year-old female without significant PMH. She presented for strokelike symptoms on 06/01. Her symptoms for started yesterday around 6 PM when she was ironing; she noticed that her left leg felt weak in her hand dexterity in the left hand was off. She woke up feeling a little sick, and was concerned that she might have COVID. She then woke up the following morning at 6:30 AM and noticed left-sided facial droop and slurred speech. No PMH of stroke, TN, DVT/PE, DM, CHF, HLD, or HTN to her knowledge. She has not been in to see a doctor in 18 years. She does not take medication on daily basis. No sick contacts, but she was recently in [place] on 05/18, and reports she may have been around sick contacts; she also reports that she had 1 day of chest pain [place] the [place] in the [place] and her feet were swollen. She denies any rashes or tick bites. Last BM was this morning. She denies smoking and tobacco use. She does endorse recent alcohol use 2 days ago, and reports that she drinks 34 drinks per week; no history of alcohol withdrawal or seizures. She does not take medications on a daily basis. Patient is hypertensive at 182/86 at time of admission; vitals otherwise stable. ED course: Aspirin 324 mg p.o. Plavix 300 mg p.o. Magnesium sulfate 1 g IV NSS 500 mL IV ROS: Patient endorses feeling off balance, left facial droop, slurred speech, left leg weakness, right tooth pain (has been ongoing for years, per patient), and numbness/tingling in the left foot. Patient denies fever, chills, night-sweats, dizziness/lightheadedness with movements, changes in vision, changes in hearing/taste/smell, rashes, tick bites, difficulty swallowing, chest pain, SOB, cough, chest pressure, chest palpitations, abdominal pain, N/V/D, changes in urinary/bowel habits. Principal Diagnosis acute stroke Discharge Exam The patient is awake, alert and oriented 3, well developed and well nourished, normocephalic and atraumatic, lying in bed and in no acute distress. HEENT--PERRL, EOMI, mucous membranes and oropharynx mildly dry Neck--supple. No JVD. No bruits. Thyroid normal, trachea midline, no adenopathy. Heart--normal S1 and S2. No murmurs, rubs or gallops. Lungs--clear bilaterally, no respiratory distress, no accessory muscle use. Abdomen--normal bowel sounds and soft. Extremities--no cyanosis or clubbing. No edema. Dermatologic--normal skin turgor, normal color, no abnormal lymph nodes, no rash. Neurologic--cranial nerves II through XII grossly intact.Left upper extremity weakness, facial droop Rheumatologic--normal range of motion. Psychiatric--normal affect. Discharge Data Allergies Allergy/AdvReac Type Severity Reaction Status Date / Time bee venom protein (honey bee) Allergy Intermediate Unknown Verified 06/01/24 11:31 iodine Allergy Mild Unknown Verified 06/01/24 11:31 Penicillins Allergy Mild Unknown Verified 06/01/24 11:31 CONTRASTMEDIA Allergy Mild Unknown Uncoded 06/01/24 11:31 Consultations 06/01/24 11:19 ED Decision to Admit Stat 06/01/24 15:38 Consult Neurology Routine Ordered Studies 06/01/24 09:10 CT head/brain wo con Stat 06/01/24 11:16 MR brain wo con Routine 06/01/24 11:17 MR angio head wo con Urgent US carotid doppler BI Routine 06/02/24 08:00 US duplex renal artery Urgent Hospital Course (1) Stroke-like symptoms: (2) Hypertension: (3) Lyme disease: (4) Periapical abscess: (5) Hypomagnesemia: (6) Elevated troponin: (7) Vitamin D deficiency: Plan #Acute stroke - Leg weakness that developed around 6 PM on 05/31; slurred speech and left-sided facial droop upon waking at 6:30 AM on 06/01 - Last known well at 6 PM 05/31 - Per telestroke, patient was outside the window for thrombolytic therapy - Head CT revealed no acute hemorrhage or infarct, but did note an incidental periapical abscess - Brain MRI: restricted diffusion in the right periventricular white matter compatible with tiny acute infarct - Head MRA: no evidence of acute intracranial abnormality, in particular no occlusion, hemorrhage, or aneurysmal disease - Carotid Dopplers; no sonographic evidence of hemodynamically significant stenosis in the right or left carotid arterial system, antegrade flow is shown in the vertebral arteries - Echocardiogram with bubble study completed, No evidence of shunt - Neurology Recommends to Continue aspirin and Plavix and after 21 days discontinue aspirin. - Atorvastatin 40 mg p.o. daily initiated - PT/OT evaluations recs rehab -Left upper extremity strength continues to improve -Patient now wants to go home with home physical therapy instead of waiting for rehab #Hypertension: -Patient now outside of the window for permissive hypertension - Labetalol 5 mg IV q6h as needed for SBP>200 or DBP>110 - Will hold metoprolol in view of relative bradycardia, -Also on hydrochlorothiazide 25 mg daily and amlodipine 5 mg daily, BP still not under good control - Increase hydrochlorothiazide to 50 daily and also amlodipine to 10 daily #Lyme disease: - Lyme (+) on arrival - Likely contributing to symptoms - will treat with Doxy 100mg bid, last dose on June 11 AM #Periapical abscess: - Periapical abscess in the left maxillary premolar noted on head CT - Patient endorses ongoing tooth pain x several years - No leukocytosis; afebrile - PCN allergy, but patient is unsure if it is a true allergy and is unsure what happens when she takes PCN - Reached out to oral surgery (Dr. Elma) - Likely chronic, but will need surgical intervention - Recommended follow-up outpatient upon discharge #Hypomagnesemia: - replete and monitor #Vitamin D deficiency - Vit D: 11.9 (06/03/24) - started on cholecalciferol 125mcg (Equivalent of 5000 units) #Elevated troponin: - 20-->19; no CP; continue telemetry monitoring Depression Depressed from the stroke Started on low-dose fluoxetine Disposition: Patient now wants to go home with home physical therapy instead of waiting for rehab Full code VTE PPx: SCDs; start on ASA + Plavix Total Time Total Time Spent Total Time Spent (In Minutes): 35 Discharge Plan Discharge Items Patient Disposition: Home - Home Health Services Reason For Visit: stroke-like symtoms Discharge Diagnosis: stroke Activity: Resume your previous activity Non-emergency contact: Neurologist Call non-emergency contact if: you have any medication questions Follow-up/Referrals: Juan Patten MD [Physician] - 06/13/24 10:00 am (Hospital follow up scheduled June 13 at 10:00 with [facility] [place] [facility] Neurology) Cass Boston CRNP [Nurse Practitioner] - 06/22/24 10:00 am (Appointment will be at [facility] [place] [address] ) Diet: Regular Addtl Attending Provider Instructions: please make arrangement for outpatient physical therapy. Also buy a blood press ure monitoring kit and check your blood pressure everyday. keep a log of the numbers so you can show your doctor during your next visit Pending Studies at Discharge: No Stand-Alone Forms: My [facility] [employer] Smoking Cessation, Medications to Prevent Stroke Medications and DC Order Prescriptions: New atorvastatin 40 mg Tablet 40 mg PO HS 30 Days Qty: 30 0RF doxycycline hyclate 100 mg Capsule 100 mg PO BID 20 Days Qty: 40 0RF clopidogrel 75 mg Tablet 75 mg PO QAM 30 Days Qty: 30 0RF amlodipine [Norvasc] 5 mg Tablet 10 mg PO QAM 30 Days Qty: 60 0RF aspirin 81 mg Tablet,Delayed Release (Dr/Ec) 81 mg PO QAM 21 Days Qty: 21 0RF fluoxetine 10 mg Capsule 10 mg PO QAM 30 Days Qty: 30 0RF hydrochlorothiazide 25 mg Tablet 50 mg PO QAM 30 Days Qty: 60 0RF cholecalciferol (vitamin D3) 125 mcg (5,000 unit) Tablet 125 mcg PO QAM 30 Days Qty: 30 0RF Discontinued Apple Cider Vinegar Gummy 1 tab PO DAILY ibuprofen [Advil] 200 mg Tablet 400 mg PO Q6H PRN (Reason: Pain) Discharge Orders: Discharge Order (Routine); Ordered 06/09/24 Ordered By: Jong Branch Admission Data Admit Date/Time: 06/01/24 11:51 Attending Provider: Jong Branch Admit Provider: Fuad Cantrell Primary Care Provider: PCP,NO Other Providers: [facility]; Fuad Cantrell; [place] Coding Level of Care Code 94203 INP/OBS DISCH >30 MIN Diagnoses Stroke-like symptoms R29.90 Hypertension I10 Lyme disease A69.20 Periapical abscess K04.7 Hypomagnesemia E83.42 Elevated troponin R79.89 Vitamin D deficiency E55.9 Time Spent (min) 35
[2024-06-09 12:38] VITALS: PULSE 64
== END 2024-06-09 13:00 | disposition home health service (06) | DRG 65 ==
LOC: ED 08:44 → 4W 11:51 → SUATTDRO 11:51 → 4W 12:21 → 2N 06-08 15:42